=== PATIENT | female | born 1945 | race Caucasian/White ===

== ENCOUNTER → 2017-02-10 | Outpatient (CLI) | payer OTHER ==
[~2017-02-10] MED LIST: LISI2.5T47 PO; METF-372 PO
[2017-02-10 09:42] LABS: Basophils # (auto) 0 uL; Basophils % (auto) 0.4 % (0.0-2.0); CONDITION Y; Eosinophils # (auto) 0 uL; Eosinophils % (auto) 0.4 % (0.0-7.0); Hematocrit 37.8 % (36.0-46.0); Hemoglobin 12.8 g/dL (12.2-16.2); Lymphocytes # (auto) 2.6 uL; Lymphocytes % (auto) 26.1 % (10.0-50.0); Mean Corpuscular Hemoglobin 29.6 pg (28.0-32.0); Mean Corpuscular Hgb Conc. 33.8 g/dL (32.0-36.0); Mean Corpuscular Volume 87.4 fL (80.0-100.0); Mean Platelet Volume 7.3 fL (7.4-10.4); Monocytes # (auto) 0.8 uL; Neutrophils # (auto) 6.5 uL; Neutrophils % (auto) 65.1 % (37.0-80.0); Platelet Count (auto) 337 10^3/uL (140-450); Red Cell Distribution Width 14.9 % (11.6-16.0); White Blood Cell 9.9 10^3/uL (4.4-10.8)
[2017-02-10 09:52] LABS: Urine Bilirubin Negative (Negative); Urine Blood Negative /uL (Negative); Urine Color Yellow (Yellow); Urine Glucose Normal (Normal); Urine Ketone TRACE (Negative); Urine Nitrite Negative (Negative); Urine RBC 1 /hpf (0 - 4); Urine Squamous Epithelial Cell FEW /hpf (<5); Urine pH 6.5 (5.0-8.0)
[2017-02-10 10:20] LABS: Albumin 3.2 g/dL (3.4-5.0); BUN/Creatinine Ratio 20.5; Bilirubin, Total 0.9 mg/dL (0.2-1.0); Calcium 9.5 mg/dL (8.5-10.1); Potassium 4.6 mmol/L (3.5-5.1); Total Protein 7.4 g/dL (6.4-8.2)
== END | disposition home or self-care (01) ==
LOC: LAB 09:01
PROVIDERS: ATTEND Nurse Practitioner
DX: E11.65 Type 2 diabetes mellitus with hyperglycemia (principal)
CPT/HCPCS: 36415; 80053; 80061; 81001; 82043; 82306; 82607; 83036; 84443; 85025

== ENCOUNTER 2017-02-24 13:19 | Inpatient (IN) | payer OTHER ==
[~2017-02-24] VITALS: Ht 170.2 cm; Wt 71.9 kg
[2017-02-24] MEDS ORDERED: SODIUM CHLORIDE 0.9% 500 ML IV ONE (13:39)
[2017-02-24 13:59] LABS: Basophils # (auto) 0 uL; Basophils % (auto) 0.2 % (0.0-2.0); CONDITION Y; Eosinophils # (auto) 0 uL; Eosinophils % (auto) 0.4 % (0.0-7.0); Hematocrit 34.6 % (36.0-46.0); Hemoglobin 11.7 g/dL (12.2-16.2); Lymphocytes # (auto) 1.8 uL; Lymphocytes % (auto) 20.9 % (10.0-50.0); Mean Corpuscular Hemoglobin 29.9 pg (28.0-32.0); Mean Corpuscular Hgb Conc. 33.8 g/dL (32.0-36.0); Mean Corpuscular Volume 88.4 fL (80.0-100.0); Mean Platelet Volume 7.1 fL (7.4-10.4); Monocytes # (auto) 0.6 uL; Monocytes % (auto) 6.6 % (0.0-12.0); Neutrophils # (auto) 6.4 uL; Neutrophils % (auto) 71.9 % (37.0-80.0); Platelet Count (auto) 274 10^3/uL (140-450); Red Cell Distribution Width 14.6 % (11.6-16.0); White Blood Cell 8.8 10^3/uL (4.4-10.8)
[2017-02-24 14:08] LABS: Albumin 2.9 g/dL (3.4-5.0); Anion Gap 16 (5-15); Aspartate Aminotransferase 12 U/L (15-37); BUN/Creatinine Ratio 22.5; Blood Urea Nitrogen 25 mg/dL (7-18); Calcium 8.2 mg/dL (8.5-10.1); Carbon Dioxide 19 mmol/L (21-32); Chloride 86 mmol/L (98-107); GFR African American 63 mL/min; GFR Non-African American 52 mL/min; Glucose 99 mg/dL (74-106); Potassium 4.1 mmol/L (3.5-5.1); Sodium 121 mmol/L (136-145)
[2017-02-24 14:23] LABS: Alkaline Phosphatase 121 U/L (45-117); Bilirubin, Total 0.6 mg/dL (0.2-1.0)
[2017-02-24 15:06] LABS: Magnesium 1.7 mg/dL (1.6-2.6)
[2017-02-24] MEDS: SODIUM CHLORIDE 0.9% 1,000 ML IV SCH (17:13)
[2017-02-24] MEDS ORDERED: THIAMINE HCL 100 MG/ML 2ML VIAL IV ONE (17:15)
[2017-02-24] MEDS ORDERED: TEMAZEPAM 15 MG CAP PO PRN (17:15)
[2017-02-24] MEDS ORDERED: LORazepam 0.5 MG TAB PO PRN (17:15)
[2017-02-24] MEDS ORDERED: NITROGLYCERIN 0.4 MG SL TAB SL PRN (17:15)
[2017-02-24] MEDS ORDERED: chlordiazePOXIDE HCL 25 MG CAP PO PRN (17:15)
[2017-02-24] MEDS ORDERED: HYDROcodone-ACET 5/325MG TAB PO PRN (17:15)
[2017-02-24] MEDS ORDERED: DEXTROSE (50%) 50ML SYRG IV PRN (17:15)
[2017-02-24] MEDS ORDERED: MORPHINE SULF INJ 2 MG/ML SYRINGE 1ML IV PRN (17:15)
[2017-02-24] MEDS ORDERED: MORPHINE SULFATE 4 MG/ML SYRG IV PRN (17:15)
[2017-02-24] MEDS ORDERED: PROMETHAZINE HCL 25 MG/ML 1ML IV PRN (17:15)
[2017-02-24] MEDS ORDERED: AMIODARONE HCL 150 MG in D5W 5% 100 ML IV ONE (17:45)
[2017-02-24] MEDS ORDERED: AMIODARONE HCL 900 MG in DEXTROSE 500 ML IV SCH (18:00)
[2017-02-24 18:05] LABS: Urine Bilirubin Negative (Negative); Urine Blood 1+ /uL (Negative); Urine Color Yellow (Yellow); Urine Glucose Normal (Normal); Urine Ketone 1+ (Negative); Urine Nitrite Negative (Negative); Urine RBC 5 /hpf (0 - 4); Urine Squamous Epithelial Cell FEW /hpf (<5); Urine Urobilinogen Normal (Negative); Urine pH 5.5 (5.0-8.0)
[2017-02-24 19:35] LABS: Temperature: 23.5 C (20.0-25.0)
[2017-02-24] MEDS: InsuLIN REG 1unit/0.01ml Soln (100units/ml) SC SCH (22:00)
[2017-02-24] MEDS: ACCU-CHEK COMFORT CURVE STRIP VI SCH (22:06)
[2017-02-24 22:50] VITALS: BP 146/58
[2017-02-25] MEDS ORDERED: AMIODARONE HCL 900 MG in DEXTROSE 500 ML IV SCH ×2
[2017-02-25] MEDS: SODIUM CHLORIDE 0.9% 1,000 ML IV SCH ×3 (03:02→23:02)
[2017-02-25 05:09] VITALS: BP 137/86
[2017-02-25 06:51] LABS: Albumin 2.8 g/dL (3.4-5.0); BUN/Creatinine Ratio 22.8; Bilirubin, Total 0.6 mg/dL (0.2-1.0); Calcium 9.1 mg/dL (8.5-10.1); Potassium 4.7 mmol/L (3.5-5.1); Total Protein 6.8 g/dL (6.4-8.2)
[2017-02-25] MEDS: InsuLIN REG 1unit/0.01ml Soln (100units/ml) SC SCH ×4 (07:00→21:37)
[2017-02-25] MEDS: ACCU-CHEK COMFORT CURVE STRIP VI SCH ×4 (07:07→21:38)
[2017-02-25 08:00] VITALS: BP 111/77
[2017-02-25 09:00] VITALS: BP 111/77
[2017-02-25] MEDS: ASPirin 81 mg TAB PO SCH (09:20)
[2017-02-25] MEDS: THIAMINE HCL 100 MG/ML 2ML VIAL IV SCH (09:20)
[2017-02-25] MEDS: FOLIC ACID 1 MG in D5W 5% 50 ML IV SCH (09:20)
[2017-02-25 13:00] VITALS: BP 181/73
[2017-02-25] MEDS ORDERED: metFORMIN HYDROCHLORIDE 500 MG TAB PO ONE (13:30)
[2017-02-25] MEDS ORDERED: LISINOPRIL 5 MG TAB PO ONE (13:30)
[2017-02-25 17:00] VITALS: BP 103/70
[2017-02-26 02:17] VITALS: BP 111/63
[2017-02-26 05:00] VITALS: BP 132/63
[2017-02-26 06:49] LABS: Potassium 4.3 mmol/L (3.5-5.1)
[2017-02-26 06:52] LABS: BUN/Creatinine Ratio 22.4; Calcium 8.8 mg/dL (8.5-10.1)
[2017-02-26] MEDS: InsuLIN REG 1unit/0.01ml Soln (100units/ml) SC SCH ×4 (07:00→22:02)
[2017-02-26] MEDS: ACCU-CHEK COMFORT CURVE STRIP VI SCH ×4 (07:25→22:01)
[2017-02-26 09:00] VITALS: BP 149/77
[2017-02-26] MEDS: ASPirin 81 mg TAB PO SCH (10:24)
[2017-02-26] MEDS: THIAMINE HCL 100 MG/ML 2ML VIAL IV SCH (10:24)
[2017-02-26] MEDS: SODIUM CHLORIDE 0.9% 1,000 ML IV SCH ×2 (10:24→19:02)
[2017-02-26] MEDS: LISINOPRIL 5 MG TAB PO SCH (10:25)
[2017-02-26] MEDS: metFORMIN HYDROCHLORIDE 500 MG TAB PO SCH (10:26)
[2017-02-26] MEDS: FOLIC ACID 1 MG in D5W 5% 50 ML IV SCH (10:28)
[2017-02-26] MEDS ORDERED: traMADol HCL 50 MG TAB PO PRN (11:15)
[2017-02-26 13:00] VITALS: BP 146/74
[2017-02-26 17:00] VITALS: BP 153/67
[2017-02-26] MEDS: ACETAMINOPHEN 500 MG TAB PO PRN (22:03)
[2017-02-27 05:00] VITALS: BP 154/72
[2017-02-27] MEDS: SODIUM CHLORIDE 0.9% 1,000 ML IV SCH ×2 (05:32→15:02)
[2017-02-27] MEDS: ACCU-CHEK COMFORT CURVE STRIP VI SCH ×4 (06:41→22:00)
[2017-02-27] MEDS: InsuLIN REG 1unit/0.01ml Soln (100units/ml) SC SCH ×4 (06:41→22:00)
[2017-02-27 09:00] VITALS: BP 156/74
[2017-02-27] MEDS: THIAMINE HCL 100 MG/ML 2ML VIAL IV SCH (10:04)
[2017-02-27] MEDS: FOLIC ACID 1 MG in D5W 5% 50 ML IV SCH (10:04)
[2017-02-27] MEDS: LISINOPRIL 5 MG TAB PO SCH (10:05)
[2017-02-27] MEDS: ASPirin 81 mg TAB PO SCH (10:05)
[2017-02-27] MEDS: metFORMIN HYDROCHLORIDE 500 MG TAB PO SCH (10:06)
[2017-02-27 13:00] VITALS: BP 152/76
[2017-02-27 17:00] VITALS: BP 144/73
[2017-02-27] MEDS: ACETAMINOPHEN 500 MG TAB PO PRN (17:15)
[2017-02-27 22:39] VITALS: BP 160/80
[2017-02-28] MEDS: SODIUM CHLORIDE 0.9% 1,000 ML IV SCH ×2 (03:51→14:08)
[2017-02-28] MEDS: ACETAMINOPHEN 500 MG TAB PO PRN (04:21)
[2017-02-28 05:40] VITALS: BP 167/81
[2017-02-28] MEDS: ACCU-CHEK COMFORT CURVE STRIP VI SCH ×2 (06:58→14:08)
[2017-02-28] MEDS: InsuLIN REG 1unit/0.01ml Soln (100units/ml) SC SCH ×2 (06:58→11:30)
[2017-02-28 09:17] VITALS: BP 169/101
[2017-02-28] MEDS: metFORMIN HYDROCHLORIDE 500 MG TAB PO SCH (10:00)
[2017-02-28] MEDS: LISINOPRIL 5 MG TAB PO SCH (10:00)
[2017-02-28] MEDS: ASPirin 81 mg TAB PO SCH (10:00)
[2017-02-28] MEDS: THIAMINE HCL 100 MG/ML 2ML VIAL IV SCH (10:00)
[2017-02-28] MEDS: FOLIC ACID 1 MG in D5W 5% 50 ML IV SCH (10:01)
[2017-02-28] MEDS ORDERED: ASPI81CH43 PO (12:14)
[2017-02-28] MEDS ORDERED: LISI-275 PO (12:14)
[2017-02-28] MEDS ORDERED: FOLITAB22 PO (12:14)
[2017-02-28 13:00] VITALS: BP 177/89
[2017-03-01] MEDS ORDERED: LISINOPRIL 5 MG TAB PO SCH (10:00)
== END 2017-02-28 15:40 | disposition home or self-care (01) | DRG 556 ==
LOC: ER 13:19 → EDBD 13:19 → TELE 13:20 → TELE-WESTW 22:50
PROVIDERS: ADMIT Internal Medicine; ATTEND Internal Medicine
DX: M25.552 Pain in left hip (principal); E44.0 Moderate protein-calorie malnutrition; E87.1 Hypo-osmolality and hyponatremia; N39.0 Urinary tract infection, site not specified; R26.9 Unspecified abnormalities of gait and mobility; E11.9 Type 2 diabetes mellitus without complications; F17.210 Nicotine dependence, cigarettes, uncomplicated; G89.29 Other chronic pain; I10 Essential (primary) hypertension; I67.2 Cerebral atherosclerosis; E87.8 Other disorders of electrolyte and fluid balance, not elsewhere classified; M85.80 Other specified disorders of bone density and structure, unspecified site; R29.6 Repeated falls; E11.42 Type 2 diabetes mellitus with diabetic polyneuropathy; E53.8 Deficiency of other specified B group vitamins; F10.20 Alcohol dependence, uncomplicated; W19.XXXA Unspecified fall, initial encounter; Z83.3 Family history of diabetes mellitus; Z68.24 Body mass index [BMI] 24.0-24.9, adult; Z90.49 Acquired absence of other specified parts of digestive tract; Z90.710 Acquired absence of both cervix and uterus; M19.90 Unspecified osteoarthritis, unspecified site
CPT/HCPCS: 36415; 70450; 71010; 73700; 80048; 80053; 80061; 80307; 80320; 81001; 82550; 82607; 82746; 82962; 83036; 83735; 84443; 84484; 85025; 85652; 93005; 93886; 94761; 96361; 96374; 97116; 97163; 97530; J1815; J7060

== ENCOUNTER → 2017-12-09 | Outpatient (CLI) | payer OTHER ==
[~2017-12-09] MED LIST changes: +ASPI81CH43 PO; +FOLITAB22 PO; +LISI-275 PO
[2017-12-09 08:48] LABS: Basophils # (auto) 0 uL; Basophils % (auto) 0.5 % (0.0-2.0); Eosinophils # (auto) 0.1 uL; Eosinophils % (auto) 1.3 % (0.0-7.0); Hematocrit 37.3 % (36.0-46.0); Lymphocytes # (auto) 2.3 uL; Lymphocytes % (auto) 32.1 % (10.0-50.0); Mean Corpuscular Hemoglobin 29.8 pg (28.0-32.0); Mean Corpuscular Hgb Conc. 32.1 g/dL (32.0-36.0); Mean Corpuscular Volume 92.9 fL (80.0-100.0); Monocytes # (auto) 0.5 uL; Monocytes % (auto) 7.2 % (0.0-12.0); Neutrophils # (auto) 4.2 uL; Neutrophils % (auto) 58.9 % (37.0-80.0); Nucleated Red Blood Cells % 0.1 %; Platelet Count (auto) 282 10^3/uL (140-450); Red Blood Cells 4.02 10^6/uL (4.0-5.20); Red Cell Distribution Width 15.4 % (11.8-14.3); White Blood Cell 7.1 10^3/uL (4.4-10.8)
[2017-12-09 09:07] LABS: Urine Bacteria NONE SEEN /hpf (None Seen); Urine Blood 1+ /uL (Negative); Urine Mucus FEW (None Seen); Urine Specific Gravity 1.014 (1.001-1.035); Urine WBC 118 /hpf (0 - 5)
[2017-12-09 09:15] LABS: Albumin 3.7 g/dL (3.4-5.0); BUN/Creatinine Ratio 26.1; Bilirubin, Total 0.6 mg/dL (0.2-1.0); Calcium 9.4 mg/dL (8.5-10.1); Total Protein 8.1 g/dL (6.4-8.2)
== END | disposition home or self-care (01) ==
LOC: LAB 07:21
PROVIDERS: ATTEND Nurse Practitioner
DX: E78.5 Hyperlipidemia, unspecified (principal); E11.42 Type 2 diabetes mellitus with diabetic polyneuropathy; E11.22 Type 2 diabetes mellitus with diabetic chronic kidney disease; I12.9 Hypertensive chronic kidney disease with stage 1 through stage 4 chronic kidney disease, or unspecified chronic kidney disease; N18.3 Chronic kidney disease, stage 3 (moderate)
CPT/HCPCS: 36415; 80053; 80061; 81001; 82043; 83036; 84443; 85025

== ENCOUNTER → 2018-01-11 | Outpatient (CLI) | payer OTHER ==
[2018-01-11 13:30] LABS: Hepatitis B Surface Antibody Negative
[2018-01-11 14:01] LABS: Hepatitis A Total Antibody Negative
[2018-01-11 17:54] LABS: Hepatitis B Surface Antigen Negative (Negative); Hepatitis C Antibody Negative (Negative)
[2018-01-11 17:55] LABS: Hepatitis B Core Total AB Negative
== END | disposition home or self-care (01) ==
LOC: LAB 07:35
PROVIDERS: ATTEND Nurse Practitioner
DX: E78.5 Hyperlipidemia, unspecified (principal); I12.9 Hypertensive chronic kidney disease with stage 1 through stage 4 chronic kidney disease, or unspecified chronic kidney disease; E11.22 Type 2 diabetes mellitus with diabetic chronic kidney disease; N18.3 Chronic kidney disease, stage 3 (moderate)
CPT/HCPCS: 36415; 86704; 86706; 86708; 86803; 87340

== ENCOUNTER 2018-03-05 11:52 | Emergency (ER) | payer OTHER, MEDICAID ==
[~2018-03-05] VITALS: Ht 152.4 cm; Wt 68.0 kg
[2018-03-05 13:20] LABS: Basophils # (auto) 0.1 uL; Basophils % (auto) 0.9 % (0.0-2.0); Eosinophils # (auto) 0 uL; Eosinophils % (auto) 0.7 % (0.0-7.0); Hematocrit 38.5 % (36.0-46.0); Hemoglobin 12.8 g/dL (12.2-16.2); Lymphocytes # (auto) 1.2 uL; Lymphocytes % (auto) 17.5 % (10.0-50.0); Mean Corpuscular Hemoglobin 30.3 pg (28.0-32.0); Mean Corpuscular Hgb Conc. 33.1 g/dL (32.0-36.0); Mean Corpuscular Volume 91.4 fL (80.0-100.0); Monocytes # (auto) 0.7 uL; Monocytes % (auto) 9.6 % (0.0-12.0); Neutrophils # (auto) 4.9 uL; Neutrophils % (auto) 71.3 % (37.0-80.0); Nucleated Red Blood Cells % 0.1 %; Platelet Count (auto) 219 10^3/uL (140-450); Red Blood Cells 4.22 10^6/uL (4.0-5.20); Red Cell Distribution Width 15.3 % (11.8-14.3); White Blood Cell 6.9 10^3/uL (4.4-10.8)
[2018-03-05 13:38] LABS: Alanine Aminotransferase 15 U/L (13-56); Albumin 2.8 g/dL (3.4-5.0); Anion Gap 13 (5-15); Aspartate Aminotransferase 12 U/L (15-37); BUN/Creatinine Ratio 18.5; Blood Urea Nitrogen 29 mg/dL (7-18); Carbon Dioxide 20 mmol/L (21-32); Chloride 99 mmol/L (98-107); GFR African American 42 mL/min; GFR Non-African American 35 mL/min; Glucose 155 mg/dL (74-106); Potassium 4.3 mmol/L (3.5-5.1); Sodium 132 mmol/L (136-145)
[2018-03-05 13:43] LABS: Alkaline Phosphatase 70 U/L (45-117); Bilirubin, Total 0.4 mg/dL (0.2-1.0); Total Protein 6.6 g/dL (6.4-8.2)
[2018-03-05 15:33] LABS: Urine Amorphous Crystal FEW /hpf (None Seen); Urine Bacteria FEW /hpf (None Seen); Urine Blood Negative /uL (Negative); Urine Hyaline Cast MOD /lpf (0 - 2); Urine Mucus FEW (None Seen); Urine Specific Gravity 1.013 (1.001-1.035); Urine WBC 103 /hpf (0 - 5)
[2018-03-05 15:51] VITALS: BP 142/85
== END 2018-03-05 16:01 | disposition home or self-care (01) ==
LOC: ER 11:52
DX: G62.9 Polyneuropathy, unspecified (principal); N39.0 Urinary tract infection, site not specified; E11.9 Type 2 diabetes mellitus without complications; I10 Essential (primary) hypertension; F17.210 Nicotine dependence, cigarettes, uncomplicated; Z90.49 Acquired absence of other specified parts of digestive tract; Z90.710 Acquired absence of both cervix and uterus
CPT/HCPCS: 36415; 70450; 71045; 80053; 81001; 82962; 84484; 85025; 93005

== ENCOUNTER 2018-03-23 13:08 | Emergency (ER) | payer OTHER, MEDICAID ==
[~2018-03-23] VITALS: Ht 162.6 cm; Wt 62.1 kg
[2018-03-23] MEDS ORDERED: SODIUM CHLORIDE 0.9% 1,000 ML IV ONE (13:23)
[2018-03-23 14:17] LABS: Basophils # (auto) 0.1 uL; Basophils % (auto) 1.1 % (0.0-2.0); Eosinophils # (auto) 0 uL; Eosinophils % (auto) 0.5 % (0.0-7.0); Hematocrit 37.4 % (36.0-46.0); Hemoglobin 12.1 g/dL (12.2-16.2); Lymphocytes # (auto) 1.4 uL; Lymphocytes % (auto) 21.3 % (10.0-50.0); Mean Corpuscular Hemoglobin 29.1 pg (28.0-32.0); Mean Corpuscular Hgb Conc. 32.3 g/dL (32.0-36.0); Mean Corpuscular Volume 90.3 fL (80.0-100.0); Monocytes # (auto) 0.6 uL; Monocytes % (auto) 9.7 % (0.0-12.0); Neutrophils # (auto) 4.4 uL; Neutrophils % (auto) 67.4 % (37.0-80.0); Nucleated Red Blood Cells % 0.2 %; Platelet Count (auto) 235 10^3/uL (140-450); Red Blood Cells 4.14 10^6/uL (4.0-5.20); Red Cell Distribution Width 15.3 % (11.8-14.3); White Blood Cell 6.6 10^3/uL (4.4-10.8)
[2018-03-23 14:36] LABS: Alanine Aminotransferase 14 U/L (13-56); Albumin 2.6 g/dL (3.4-5.0); Anion Gap 16 (5-15); Aspartate Aminotransferase 15 U/L (15-37); BUN/Creatinine Ratio 15.6; Blood Urea Nitrogen 27 mg/dL (7-18); Calcium 7.8 mg/dL (8.5-10.1); Carbon Dioxide 19 mmol/L (21-32); Chloride 99 mmol/L (98-107); GFR African American 37 mL/min; GFR Non-African American 31 mL/min; Glucose 157 mg/dL (74-106); Potassium 4.1 mmol/L (3.5-5.1); Sodium 134 mmol/L (136-145)
[2018-03-23 14:41] LABS: Alkaline Phosphatase 80 U/L (45-117); Bilirubin, Total 0.4 mg/dL (0.2-1.0); Total Protein 6.5 g/dL (6.4-8.2)
[2018-03-23 18:07] VITALS: BP 150/87
== END 2018-03-23 18:09 | disposition home or self-care (01) ==
LOC: ER 13:08 → EDUNIT# 13:08 → EDBD 13:08 → ER 18:09
DX: R42 Dizziness and giddiness (principal); E86.0 Dehydration; F17.210 Nicotine dependence, cigarettes, uncomplicated; E44.0 Moderate protein-calorie malnutrition; E11.9 Type 2 diabetes mellitus without complications; I10 Essential (primary) hypertension; Z68.23 Body mass index [BMI] 23.0-23.9, adult; Z90.49 Acquired absence of other specified parts of digestive tract; Z90.710 Acquired absence of both cervix and uterus
CPT/HCPCS: 36415; 70450; 71045; 80053; 82962; 83880; 84484; 85025; 93005; 96360; 99285; J7030

== ENCOUNTER → 2018-04-25 | Outpatient (CLI) | payer OTHER, MEDICAID ==
[2018-04-25 08:12] LABS: Basophils # (auto) 0 uL; Basophils % (auto) 0.5 % (0.0-2.0); Eosinophils # (auto) 0.1 uL; Eosinophils % (auto) 1.6 % (0.0-7.0); Hematocrit 39.8 % (36.0-46.0); Lymphocytes # (auto) 2.1 uL; Mean Corpuscular Hemoglobin 30.3 pg (28.0-32.0); Mean Corpuscular Hgb Conc. 32.6 g/dL (32.0-36.0); Mean Corpuscular Volume 92.7 fL (80.0-100.0); Monocytes # (auto) 0.4 uL; Monocytes % (auto) 5.7 % (0.0-12.0); Neutrophils # (auto) 4.1 uL; Neutrophils % (auto) 61.2 % (37.0-80.0); Nucleated Red Blood Cells % 0.1 %; Platelet Count (auto) 253 10^3/uL (140-450); Red Blood Cells 4.29 10^6/uL (4.0-5.20); Red Cell Distribution Width 16.3 % (11.8-14.3); White Blood Cell 6.8 10^3/uL (4.4-10.8)
[2018-04-25 09:06] LABS: Albumin 3.2 g/dL (3.4-5.0); BUN/Creatinine Ratio 18.2; Bilirubin, Total 0.7 mg/dL (0.2-1.0); Potassium 3.9 mmol/L (3.5-5.1); Total Protein 7.5 g/dL (6.4-8.2)
== END | disposition home or self-care (01) ==
LOC: LAB 07:18
PROVIDERS: ATTEND Nurse Practitioner
DX: E78.5 Hyperlipidemia, unspecified (principal); E11.59 Type 2 diabetes mellitus with other circulatory complications; I10 Essential (primary) hypertension
CPT/HCPCS: 36415; 80053; 80061; 82306; 83036; 84443; 85025

== ENCOUNTER → 2018-05-02 | Outpatient (CLI) | payer OTHER, MEDICAID ==
[2018-05-02 09:53] LABS: Urine Amorphous Crystal FEW /hpf (None Seen); Urine Bacteria NONE SEEN /hpf (None Seen); Urine Blood Negative /uL (Negative); Urine Specific Gravity 1.008 (1.001-1.035); Urine WBC 2 /hpf (0 - 5)
== END | disposition home or self-care (01) ==
LOC: LAB 09:09
PROVIDERS: ATTEND Nurse Practitioner
DX: E11.59 Type 2 diabetes mellitus with other circulatory complications (principal); E78.5 Hyperlipidemia, unspecified; F17.200 Nicotine dependence, unspecified, uncomplicated
CPT/HCPCS: 81001; 82043

== ENCOUNTER 2018-11-08 13:15 | Inpatient (IN) | payer OTHER, MEDICAID | END 2018-11-10 15:20 | disposition home or self-care (01) | LOC: EAST 11-10 00:09 → ER 13:15 → OVERFLOW 19:41 → EAST 21:29 | DX: A41.9 Sepsis, unspecified organism (principal); E44.0 Moderate protein-calorie malnutrition; E87.1 Hypo-osmolality and hyponatremia; N39.0 Urinary tract infection, site not specified ==

== ENCOUNTER 2018-11-24 14:53 | Inpatient (IN) | payer OTHER, MEDICAID ==
[~2018-11-24] VITALS: Ht 165.1 cm; Wt 54.3 kg
[~2018-11-24 14:53] MED LIST changes: +AML5T PO; -ASPI81CH43 PO; +ATOR20TA PO; -FOLITAB22 PO; +GABA300C10 PO; +HCTZ25T PO; -LISI-275 PO; +LISI-646 PO; -LISI2.5T47 PO; +LOSA100T33 PO; +METF-370 PO; -METF-372 PO; +OXYB5TAB61 PO
--- NOTE | 2018-11-24 16:00 | NUR ---
Direct Admit Note from [facility] RICK GARZA admitted to Telemetry/MS unit as a direct admit per MD order from [place]. Patient oriented to ENDER PASTOR, primary RN, unit, room, bed, and unit policies regarding patient care and visiting hours. Patient now on continuous telemetry monitoring, tele box # 1 and telemetry reading on arrival to unit is SR 89 with PVCs. Patient weighed by bed scale and encouraged to call if they need something. All questions and concerns addressed, patient verbalized understanding. MD notified of patients arrival and admit orders received.
--- NOTE | 2018-11-24 16:38 | NUR ---
Swallow eval Per RN at [place] patient passed swallow eval. Cardiac diet ordered per Dr. Alan.
--- NOTE | 2018-11-24 16:39 | NUR ---
Called Dr. Alan for direct admit orders. Per Dr. Alan hospitalist to assume care of patient.
[2018-11-24 17:00] VITALS: BP 129/63
[2018-11-24] MEDS ORDERED: HYDROcodone-ACET 5/325MG TAB PO PRN (17:15)
[2018-11-24] MEDS ORDERED: diphenhdrAMINE HCL 25 MG CAP PO PRN (17:15)
[2018-11-24] MEDS ORDERED: DOCUSATE SOD 100 MG CAP PO PRN (17:15)
[2018-11-24] MEDS ORDERED: ONDANSETRON HCL 4 MG/2 ML VIAL IV PRN (17:15)
[2018-11-24] MEDS ORDERED: hydrALAZINE HCL 20 MG/ML VL IV PRN (17:15)
[2018-11-24] MEDS ORDERED: ACETAMINOPHEN 500 MG TAB PO PRN (17:15)
[2018-11-24 17:21] VITALS: BP 129/63
--- NOTE | 2018-11-24 19:30 | NUR ---
Opening shift note Patient in bed alert and oriented x 3, with periods of forgetfulness. Patient able to make needs known. Patient's respiration even and unlabored, denies pain and discomfort at this time. Plan of care discussed, patient verbalized understanding. All needs attended, will continue to monitor.
--- NOTE | 2018-11-24 20:12 | NUR ---
SWALLOW EVALUATED. PATIENT HAS OWN TEETH. PATIENT ABLE TO TOLERATE MECHANICAL SOFT DIET TEXTURE WITH THIN LIQUIDS WITH NO OVERT SIGNS OR SYMPTOMS OF ASPIRATION.
[2018-11-24] MEDS: ATORVASTATIN 20 MG TAB PO SCH (22:10)
[2018-11-24 22:26] VITALS: BP 117/64
[2018-11-24] MEDS: ALPRAZolam 0.25 MG TAB PO PRN (23:10)
--- NOTE | 2018-11-24 23:11 | NUR ---
Patient restless, constantly trying to get off bed. Patient with unstable gait and balance. Assessed patient's BP at 171/69. PRN Apresoline and antianxiety med given. Will reassess and continue to monitor.
--- NOTE | 2018-11-24 23:41 | NUR ---
Reassessed BP at 126/75. Patient calm and relaxed. Will continue to monitor.
--- NOTE | 2018-11-25 02:38 | NUR ---
Patient trying to get up from bed. Per patient "I do not know what I am trying to do" Patient confused. Reoriented patient, encourage to get some sleep. Patient denies pain and discomfort at this time. Will continue to monitor.
--- NOTE | 2018-11-25 04:00 | NUR ---
NEURO CHECK PATIENT ALERT AND ORIENTED X 2, ORIENTED TO NAME, TIME AND PLACE. PATIENT WITH EPISODES OF CONFUSION. PT ABLE TO MAKE NEEDS KNOWN. PUPILS PERRLA, PT WITH STRONG, EQUAL BILATERAL HAND LICENSED AND CERTIFIED MIDWIFE. PT ABLE TO TRANSFER FROM BED TO BEDSIDE COMMODE WITH STANDBY ASSIST.
[2018-11-25 04:30] VITALS: BP 135/74
[2018-11-25 05:31] VITALS: BP 148/73
[2018-11-25 06:38] LABS: Basophils # (auto) 0.1 uL; Basophils % (auto) 0.7 % (0.0-2.0); Eosinophils # (auto) 0.1 uL; Eosinophils % (auto) 0.8 % (0.0-7.0); Hematocrit 40.5 % (36.0-46.0); Hemoglobin 13.3 g/dL (12.2-16.2); Lymphocytes # (auto) 1.5 uL; Lymphocytes % (auto) 19.4 % (10.0-50.0); Mean Corpuscular Hemoglobin 29.8 pg (28.0-32.0); Mean Corpuscular Hgb Conc. 32.8 g/dL (32.0-36.0); Mean Corpuscular Volume 91.1 fL (80.0-100.0); Monocytes # (auto) 0.6 uL; Monocytes % (auto) 7.3 % (0.0-12.0); Neutrophils # (auto) 5.6 uL; Neutrophils % (auto) 71.8 % (37.0-80.0); Nucleated Red Blood Cells % 0.1 %; Platelet Count (auto) 274 10^3/uL (140-450); Red Blood Cells 4.44 10^6/uL (4.0-5.20); Red Cell Distribution Width 15.2 % (11.8-14.3); White Blood Cell 7.8 10^3/uL (4.4-10.8)
--- NOTE | 2018-11-25 06:40 | NUR ---
PATIENT TRANSFERRED FROM ROOM 276B TO ROOM 279B. PATIENT WITH SITTER AT BEDSIDE. WILL CONTINUE TO MONITOR.
[2018-11-25 06:54] LABS: Albumin 3.2 g/dL (3.4-5.0); Calcium 9.3 mg/dL (8.5-10.1); Potassium 4.8 mmol/L (3.5-5.1)
[2018-11-25 06:59] LABS: BUN/Creatinine Ratio 20.5; Bilirubin, Total 0.7 mg/dL (0.2-1.0); Total Protein 7.5 g/dL (6.4-8.2)
--- NOTE | 2018-11-25 07:30 | NUR ---
Opening Shift Note Patient is resting in bed. Bed is locked and lowered with side rails up x2. Patient denies pain and shows no signs or symptoms of shortness of breath. Instructed patient on the plan of care and to call for assistance as needed. Call light within reach. Sitter at bedside. Will continue to round hourly and as needed.
--- NOTE | 2018-11-25 08:00 | NUR ---
Neuro Check Patient is having some episodes of confusion, but is awake and alert x2. Pupils are equal, round, and reactive. Bilateral hand damage assessor are strong. Bilateral arms are strong, fingers wiggle. Arms are able to push/pull. Bilateral legs are strong, able to wiggle toes. Legs are able to push/pull. Patient is able to pivot to bedside commode.
[2018-11-25 09:00] VITALS: BP 127/71
--- NOTE | 2018-11-25 10:00 | NUR ---
Neuro Check Patient is still having some episodes of confusion, but is awake and alert x2. Pupils are equal, round, and reactive. Bilateral hand esthetician makeup artist are strong. Bilateral arms are strong, fingers wiggle. Arms are able to push/pull. Bilateral legs are strong, able to wiggle toes. Legs are able to push/pull. Patient is able to pivot to bedside commode.
--- NOTE | 2018-11-25 10:30 | NUR ---
at bedside Dr. Whitman at bedside discussing plan of care with patient and this RN. Dr. Whitman is aware of MRI findings.
--- NOTE | 2018-11-25 12:00 | NUR ---
Neuro Check Patient is having some episodes of confusion, but is awake and alert x2. Pupils are equal, round, and reactive. Bilateral hand manager route are strong. Bilateral arms are strong, fingers wiggle. Arms are able to push/pull. Bilateral legs are strong, able to wiggle toes. Legs are able to push/pull. Patient is able to pivot to bedside commode.
--- NOTE | 2018-11-25 12:55 | NUR ---
at bedside Dr. Trinidad at bedside discussing plan of care with patient and this RN.
--- NOTE | 2018-11-25 12:56 | NUR ---
Call to Sister Call to sister to verify patient's medical history. No answer. Left a message. Awaiting call back.
[2018-11-25 13:00] VITALS: BP 100/52
--- NOTE | 2018-11-25 13:16 | NUR ---
Re: D/C Neuro Check Per Dr. Trinidad, Neuro checks can be discontinued.
[2018-11-25] MEDS: ALPRAZolam 0.25 MG TAB PO PRN (13:55)
--- NOTE | 2018-11-25 14:06 | NUR ---
Re: Refusing Murrieta Removal Patient is refusing to have murrieta catheter removed. Patient states that she will, "remove catheter herself." Educated patient on the importance of removing murrieta catheter properly. Educated patient that continuously tugging on catheter can cause pain and damage. Patient insists on leaving catheter in. Sitter at bedside.
--- NOTE | 2018-11-25 15:10 | NUR ---
Re: Patient ripped out IV Patient has ripped out IV at this time. Patient is bleeding and refusing to let me or the sitter touch her at this time. Gave patient a new gown due to blood on it. Patient took gown but refuses to allow us to assist her. Educated patient on the importance of properly discontinuing IV and murrieta catheter.
--- NOTE | 2018-11-25 16:30 | NUR ---
Re: Call to Dr. Whitman Call to Dr. Whitman at this time regarding patient's increasing agitation. Have had to call security on patient several times. New orders given.
[2018-11-25] MEDS: HALOPERIDOL LACTATE 5 MG/ML INJ VIAL IM PRN ×2 (16:37→22:38)
[2018-11-25 17:00] VITALS: BP 147/64
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
--- NOTE | 2018-11-25 19:28 | NUR ---
Re: Closing Note Patient is sitting in bed. Patient does not appear to be in any pain and shows no signs or symptoms of distress or shortness of breath. Report given. Sitter at bedside.
--- NOTE | 2018-11-25 20:48 | NUR ---
IV removal. Removed IV to left forearm area. Catheter intact upon removal. IV site covered in sterile gauze and wrapped with coban. Patient tolerated but is still agitated.
[2018-11-25 22:00] VITALS: BP 146/86
[2018-11-25] MEDS: ATORVASTATIN 20 MG TAB PO SCH (22:38)
[2018-11-25] MEDS: APIXABAN 5 MG TAB PO SCH (22:38)
--- NOTE | 2018-11-25 23:40 | NUR ---
IV Inserted. 24 gauge IV inserted into right upper forearm after 2 attempts. IV secured. Patient tolerated well.
[2018-11-26 06:17] LABS: Basophils # (auto) 0.1 uL; Eosinophils # (auto) 0.1 uL; Eosinophils % (auto) 1.6 % (0.0-7.0); Hematocrit 40.7 % (36.0-46.0); Hemoglobin 13.1 g/dL (12.2-16.2); Lymphocytes # (auto) 2.4 uL; Lymphocytes % (auto) 36.9 % (10.0-50.0); Mean Corpuscular Hgb Conc. 32.1 g/dL (32.0-36.0); Mean Corpuscular Volume 90.1 fL (80.0-100.0); Monocytes # (auto) 0.7 uL; Monocytes % (auto) 10.7 % (0.0-12.0); Neutrophils # (auto) 3.2 uL; Neutrophils % (auto) 49.8 % (37.0-80.0); Nucleated Red Blood Cells % 0.1 %; Platelet Count (auto) 260 10^3/uL (140-450); Red Blood Cells 4.51 10^6/uL (4.0-5.20); Red Cell Distribution Width 14.9 % (11.8-14.3); White Blood Cell 6.4 10^3/uL (4.4-10.8)
[2018-11-26 06:37] LABS: Albumin 3.1 g/dL (3.4-5.0); Calcium 8.9 mg/dL (8.5-10.1); Potassium 3.9 mmol/L (3.5-5.1)
[2018-11-26 06:42] LABS: BUN/Creatinine Ratio 25.2; Bilirubin, Total 0.6 mg/dL (0.2-1.0); Total Protein 7.1 g/dL (6.4-8.2)
--- NOTE | 2018-11-26 07:50 | NUR ---
Opening Shift Note Assumed care of patient, awake and alert. No S/S of distress/SOB or pain. Instructed on POC and to call for assist PRN, will continue to monitor for changes Q1hr and PRN.
[2018-11-26 09:00] VITALS: BP 126/56
--- NOTE | 2018-11-26 09:40 | NUR ---
Dr. Whitman at bedside.
[2018-11-26] MEDS ORDERED: ASPirin 81 mg TAB PO SCH (10:00)
[2018-11-26] MEDS: APIXABAN 5 MG TAB PO SCH ×2 (10:09→22:20)
[2018-11-26] MEDS ORDERED: HALOPERIDOL LACTATE 5 MG/ML INJ VIAL IM PRN (11:45)
[2018-11-26 13:00] VITALS: BP 130/76
[2018-11-26 17:00] VITALS: BP 155/76
--- NOTE | 2018-11-26 19:14 | NUR ---
Closing note Patient resting in bed, no signs of distress noted.
--- NOTE | 2018-11-26 19:25 | NUR ---
Opening Shift Note Assumed care of patient, awake and alert X 3. Patient's mentation has improved since previous shift. Bed is in lowest position and locked. Call light within reach. Tele box number matches monitor and leads are in correct placement.Sitter at bedside. No S/S of distress/SOB or pain. Instructed on POC and to call for assist PRN, will continue to monitor for changes Q1hr and PRN.
[2018-11-26 22:00] VITALS: BP 137/72
[2018-11-26] MEDS: ATORVASTATIN 20 MG TAB PO SCH (22:20)
[2018-11-27 05:20] VITALS: BP 148/91
--- NOTE | 2018-11-27 07:40 | NUR ---
Opening Shift Note Assumed care of patient, awake and alert. No S/S of distress/SOB or pain. Sitter at bedside. Will continue to monitor for changes Q1hr and PRN.
--- NOTE | 2018-11-27 07:47 | NUR ---
Spoke to Dr. Trinidad. Dr. Trinidad states to D/C LUZMARIA as family confirmed a-fib. Dr. Trinidad further states echo is enough.
[2018-11-27 08:47] VITALS: BP 150/83
[2018-11-27] MEDS: APIXABAN 5 MG TAB PO SCH (09:42)
[2018-11-27 09:45] LABS: Folate (Folic Acid) 10.28 ng/mL (5.38-24)
--- NOTE | 2018-11-27 09:45 | NUR ---
Patient removed tele and was put back on.
--- NOTE | 2018-11-27 09:55 | NUR ---
Cristina catheter dc'd per patient request Cristina dc'd with clean technique following deflation of balloon. Patient tolerated well with no complaints of pain. Continue care.
--- NOTE | 2018-11-27 10:02 | NUR ---
Received call from Jackeline, patient's sister. Jackeline updated with the POC after providing the password.
--- NOTE | 2018-11-27 10:10 | NUR ---
Patient removed tele again. Patient seems to be forgetful. Tele was put on again and explained the patient the purpose of having tele monitor on. Patient verbalized understanding.
--- NOTE | 2018-11-27 11:00 | NUR ---
DR. BROWN AT BEDSIDE.
[2018-11-27 13:00] VITALS: BP 152/82
--- NOTE | 2018-11-27 13:31 | NUR ---
Paged social work administrator re: consult for home health services consult for medication management.
--- NOTE | 2018-11-27 14:09 | NUR ---
Spoke to Loretta, social media content manager. Loretta informed re: web content & social media manager consult for home health services for medication management and family would like to discuss about it, family at bedside. Loretta states she will talk to the family.
[2018-11-27] MEDS: ALPRAZolam 0.25 MG TAB PO PRN (14:23)
--- NOTE | 2018-11-27 14:37 | NUR ---
SS order faxed to [facility] await Loretta notification if family wants hh.
--- NOTE | 2018-11-27 15:05 | NUR ---
Spoke to Loretta. Loretta states that she sent the order over to [employer]. company re: FWW. Will update the patient.
--- NOTE | 2018-11-27 15:48 | NUR ---
Patient pulled out her own IV.
--- NOTE | 2018-11-27 16:10 | NUR ---
Per WALTER Burgosseo coordinator, Sujata at [facility] has accepted pt and care can start 24 to 48 hrs post d/c
--- NOTE | 2018-11-27 16:19 | NUR ---
Spoke to Loretta , asked her where will the FWW be delivered. Loretta states at bedside between 2-4pm. Informed Loretta that walker was not delivered yet until this time.
--- NOTE | 2018-11-27 16:30 | NUR ---
Spoke to Loretta, public health social worker and asked the contact number of [employer] company : [phone].
--- NOTE | 2018-11-27 16:33 | NUR ---
Called [facility] re: delivery of FWW. States they will give me a call back. Spoke to Merlene.
--- NOTE | 2018-11-27 17:05 | NUR ---
Spoke to Eugene from home care, states that FWW will be delivered at bedside not later than 6:30 pm. Jackeline, patient's sister updated.
--- NOTE | 2018-11-27 17:24 | NUR ---
assessment Patient is a 73 year old female who is alert and oriented. Patients cognitive abilities are intact. Prior to admission patient lived home alone and functioned independently. Patient informed me she is able to care for her own ADLs. Per patient she will return home to her prior living arrangements post discharge and family will transport her home. Patient informed me she has a cane for home use. Patient informed me she uses [facility] for her PCP. Patient informed me she feels safe returning home on discharge. I informed patient she has a right to speak to a school social worker regarding all care. I informed patient she has a right to participate in any and all discharge planning. Patient is aware of visiting hours on the hospital floor. I informed patient she has a right to privacy. Patient does not have a POA and advanced directive. I have offered patient information on POA and advanced directives and patient refused. I informed the patient the advantages and benefits of having an Advanced Directive. Patient verbalized understanding and agreed to discharge plan. I informed patient she has a ss consult for [employer] for med management and fww. MD order sent to [facility] and to . Per Meghan [facility] has accepted and will start service tomorrow 11/28/18. Per Trish Melchor[facility]Paige to deliver walker to bedside today between [id number]. Patient has been notified. Addendum: 11/27/18 at 1728 by Sana GUZMAN Amended: Links added.
--- NOTE | 2018-11-27 17:40 | NUR ---
Discharge instructions given as ordered. Encourage to follow up with PMD, welding systems and equipment repairer and neurologist as instructed. All questions and concerns addressed. Patient verbalized understanding. Medication reconciliation form completed and copy given to patient. Telemetry unit returned to [facility]. Patient taken to vehicle via wheelchair with all personal belongings, accompanied by staff and family member. No distress noted at time of departure.
--- NOTE | 2018-11-27 17:49 | NUR ---
homecare delivered the FWW at bedside but patient already left. homecare staff states they will deliver it to the patient's house. Jackeline, patient's sister informed.
== END 2018-11-27 17:40 | disposition home health service (06) | DRG 64 ==
LOC: TELE-WESTW 15:42
PROVIDERS: ADMIT Internal Medicine; ATTEND Family Medicine
DX: I63.9 Cerebral infarction, unspecified (principal); G93.41 Metabolic encephalopathy; G81.94 Hemiplegia, unspecified affecting left nondominant side; F17.210 Nicotine dependence, cigarettes, uncomplicated; R29.6 Repeated falls; I48.91 Unspecified atrial fibrillation; E11.22 Type 2 diabetes mellitus with diabetic chronic kidney disease; I12.9 Hypertensive chronic kidney disease with stage 1 through stage 4 chronic kidney disease, or unspecified chronic kidney disease; N18.3 Chronic kidney disease, stage 3 (moderate); E11.42 Type 2 diabetes mellitus with diabetic polyneuropathy; Z79.899 Other long term (current) drug therapy; Z83.3 Family history of diabetes mellitus; Z86.73 Personal history of transient ischemic attack (TIA), and cerebral infarction without residual deficits; Z90.49 Acquired absence of other specified parts of digestive tract
CPT/HCPCS: 36415; 70551; 80053; 80320; 82607; 82746; 85025; 87081; 92610; G0378

== ENCOUNTER 2018-11-30 22:01 | Inpatient (IN) | payer OTHER, MEDICAID ==
[~2018-11-30] VITALS: Ht 162.6 cm; Wt 65.1 kg
--- NOTE | 2018-11-30 21:30 | NUR ---
DIRECT TRANSFER FROM [facility] DR. DENNIS WAS CALLED FOR ORDERS, BUT STATED TO ADMIT TO HOSPITALIST BECAUSE SHE IS DVMG PATIENT, STATING HOSPITALIST WILL BE THE ADMITTING DOCTOR. SHE WAS ORIENTED TO NICOLAS CADE RN, ROOM 245, BED B, CALL LIGHT, BED, AND UNIT POLICIES. SHE WAS PLACED ON TELE BOX #[id number]. HER READING ON ARRIVAL WAS AFIB. BLOOD PRESSURE ON ARRIVAL WAS ELEVATED AT 186/ 106 P 52, R 20, T 97.8 O2 SAT OF 90%, PAIN STATED 0/0-10, A/OX3, EASY TO REORIENT, HARD FOR PATIENT FIND CERTAIN WORDS, SOMETIMES STATING INAPPROPRIATE RESPONSES. SLIGHT FACE DROOP ON LEFT SIDE, LEFT SIDE DILATED PUPIL, WEAKNESS UPON STANDING WITH UNSTEADY GAIT. PATIENT STATES THAT SHE HAD A STROKE LAST WEEK. PATIENT PLACED ON 1 L OXYGEN, WEIGHED AT BED SCALE AND ENCOURAGED TO CALL PRN. BED PLACED IN LOWEST POSITION, LOCKED, CALL LIGHT IS IN REACH, FALL BAND ON AND BED ALARM ON. WILL CONTINUE TO MONITOR.
[2018-11-30 22:00] VITALS: BP 159/93
[~2018-11-30 22:01] MED LIST changes: -AML5T PO; -LOSA100T33 PO
[2018-11-30 23:16] VITALS: BP 159/93
[2018-12-01] VITALS (7 sets, daily range): BP systolic 145–163; BP diastolic 62–94
[2018-12-01] MEDS ORDERED: PNEUMOCOCCAL VACC POLYS 25 MCG/0.5 ML VIAL IM ONE
[2018-12-01] MEDS ORDERED: cloNIDine HCL 0.1 MG TAB PO PRN
[2018-12-01] MEDS ORDERED: INFLUENZA QUAD 2018-2019 0.5 ML SYRG IM ONE
--- NOTE | 2018-12-01 00:10 | NUR ---
NON-SUSTAINED HR IN 30'S VITALS SIGNS AND ORIENTATION IN PATIENT NORMAL BASELINE. EKG TAKEN. READING SHOWED 57 BPM WITH A 1ST DEGREE BLOCK. EKG THEN TAKEN TO ARUN ORTIZ, SIGNED, AND PLACED IN CHART. WILL CONTINUE TO MONITOR.
[2018-12-01 00:47] LABS: Basophils # (auto) 0 uL; Basophils % (auto) 0.7 % (0.0-2.0); Eosinophils # (auto) 0.1 uL; Eosinophils % (auto) 1.4 % (0.0-7.0); Hematocrit 37.5 % (36.0-46.0); Hemoglobin 11.9 g/dL (12.2-16.2); Lymphocytes # (auto) 2.4 uL; Lymphocytes % (auto) 36.2 % (10.0-50.0); Mean Corpuscular Hemoglobin 28.6 pg (28.0-32.0); Mean Corpuscular Hgb Conc. 31.7 g/dL (32.0-36.0); Mean Corpuscular Volume 90.3 fL (80.0-100.0); Monocytes # (auto) 0.6 uL; Monocytes % (auto) 8.6 % (0.0-12.0); Neutrophils # (auto) 3.6 uL; Neutrophils % (auto) 53.1 % (37.0-80.0); Platelet Count (auto) 231 10^3/uL (140-450); Red Blood Cells 4.15 10^6/uL (4.0-5.20); Red Cell Distribution Width 14.8 % (11.8-14.3); White Blood Cell 6.8 10^3/uL (4.4-10.8)
[2018-12-01 01:02] LABS: Partial Thromboplastin Time 31.6 sec (23.78-33.04); Prothrombin Time 10.7 sec (9.27-12.13)
[2018-12-01 01:05] LABS: Albumin 2.7 g/dL (3.4-5.0); Calcium 8.3 mg/dL (8.5-10.1)
[2018-12-01 01:07] LABS: BUN/Creatinine Ratio 17.2
[2018-12-01 01:10] LABS: Bilirubin, Total 0.5 mg/dL (0.2-1.0); Total Protein 6.6 g/dL (6.4-8.2)
--- NOTE | 2018-12-01 03:02 | NUR ---
UA AND MRSA SENT TO LAB
--- NOTE | 2018-12-01 07:09 | NUR ---
CLOSING NOTE PATIENT IS RESTING IN BED COMFORTABLY WITH EVEN AND UNLABORED RESPIRATIONS, NO DISTRESS NOTED. BED IS LOW, LOCKED, AND CALL LIGHT WITHIN REACH. CARE TRANSFERRED TO DAY SHIFT PING VALDES.
[2018-12-01] MEDS: LORazepam 0.5 MG TAB PO PRN ×2 (07:22→21:23)
--- NOTE | 2018-12-01 07:30 | NUR ---
OPENING NOTE Report received. Upon initial assessment patient was observed sitting in bed. Patient was alert and orientated to self, and time but was confused about the reason why she was hospitalized and location. Safety precautions in place, bed left in lowest position, and call light left within reach. Patient continued to ask about when she was going to leave. Will continue to monitor patient.
[2018-12-01 09:15] LABS: Urine Bacteria FEW /hpf (None Seen); Urine Blood TRACE /uL (Negative); Urine WBC 11 /hpf (0 - 5)
[2018-12-01] MEDS: cefTRIAXone 1GM/50ML D5W 50 ML IV SCH (09:48)
[2018-12-01] MEDS: HCTZ 25 MG TAB PO SCH (10:00)
[2018-12-01] MEDS: LISINOPRIL 20 MG TAB PO SCH (10:04)
[2018-12-01] MEDS: APIXABAN 5 MG TAB PO SCH ×2 (10:04→21:23)
--- NOTE | 2018-12-01 10:30 | NUR ---
STATUS UPDATE Patient continued to remove ECG leads. Patient was educated on the importance of the need to continuous heart monitoring. She agreed to leave them on however about an hour later she remove them again and stated she does not need or want them on. Patient also refused the flu vaccine and pneumonia vaccine.
--- NOTE | 2018-12-01 12:20 | NUR ---
VI PATIENT'S FAMILY CALLED AND PATIENT'S SON LETTY IS VI PHONE NUMBER IS .
--- NOTE | 2018-12-01 13:00 | NUR ---
Patient refusal Patient was given non-skid socks for safety measures but patient removed them refusing to put them back on. Patient was educated on the importance and purpose of the socks to prevent slipping and falling. Patient did not verbalize understanding and refused to put on socks.
--- NOTE | 2018-12-01 13:20 | NUR ---
Patient's Family Patient's sister was at bedside at 0900 and stated that the patient was not able to discharge home because she lived alone and would not be capable of to take care of herself due to her wandering and confusion. She also stated that no one would be able to take care of her if she discharged from the hospital and stated she would like the patient to remain here at the hospital for safety. Patient's step-grandson Wero was at bedside at 1320 and stated that he was not able to remain with the patient during her stay here and no one else was able to stay because all her family lived in different states. Wero left his contact information.
--- NOTE | 2018-12-01 13:44 | NUR ---
Medication refusal Offered the patient ordered Ativan to help with her anxiousness but patient refused stating she does not want drugs.
--- NOTE | 2018-12-01 14:00 | NUR ---
Wandering Patient continuously wanders around the unit attempting to leave. Patient states she is that she is going home. Patient is redirected, reorientated, and educated on using non-skid socks for safety and to prevents falls. Patient refuses to wear non-skid socks.
--- NOTE | 2018-12-01 14:25 | NUR ---
MD MANCIA AT BEDSIDE. UPDATED MD ON PATIENT'S STATUS, INFORMED MD PATIENT HAS PERIODS OF CONFUSION, WANDERS, REFUSED MEDICATIONS AND TELEMETRY BOX. MD IS AWARE AND WILL PUT IN ORDERS. WILL FOLLOW THROUGH WITH NEW ORDERS
--- NOTE | 2018-12-01 14:34 | NUR ---
Downgrade to med-surg Dr. Cochran was informed that patient would not leave on tele monitor Dr. Cochran downgraded patient to med-surg
--- NOTE | 2018-12-01 14:36 | NUR ---
Pt is an alert and oriented female that resides alone. Pt states she functions independently and although she has a fww as well as a w/c in the home she does not use them. Pt states she has a sister, Jackeline, in the area that is available to help her when they are not arguing. Pt declined resources for in home assistance or placement for assisted living. Pt states she has transportation home with her sister. Pt verbalized understanding and agreeance with d/c plan. Addendum: 12/01/18 at 1439 by GUANACO GUZMAN Amended: Links added.
[2018-12-01] MEDS ORDERED: DEXTROSE (50%) 50ML SYRG IV PRN (16:30)
[2018-12-01] MEDS ORDERED: THIAMINE HCL 100 MG TAB PO ONE (16:30)
[2018-12-01] MEDS: ACCU-CHEK COMFORT CURVE STRIP VI SCH ×2 (17:00→21:25)
[2018-12-01] MEDS: InsuLIN REG 1unit/0.01ml Soln (100units/ml) SC SCH ×2 (18:00→21:32)
--- NOTE | 2018-12-01 18:51 | NUR ---
PAGED LONG WINDER TENDER HOSPITALIST FOR PATIENT'S BLOOD PRESSURE OF 154/72 mmHg AND HEART RATE 45. AWAITING CALL BACK.
--- NOTE | 2018-12-01 19:05 | NUR ---
DR. JOHNSON CALLED BACK. INFORMED MD OF PATIENT'S BLOOD PRESSURE AND HEART RATE. MD ORDERED HYDRALAZINE TO BE GIVEN IF SBP >160. WILL INFORM KINESEOLOGIST RN
[2018-12-01] MEDS ORDERED: hydrALAZINE HCL 20 MG/ML VL IV PRN (19:15)
--- NOTE | 2018-12-01 19:18 | NUR ---
CLOSING SHIFT NOTE ENDORSED CARE TO HIDE SALTER PING DOCKERY. PATIENT HAS NO S/S OF DISTRESS/SOB OR PAIN AT THIS TIME.
--- NOTE | 2018-12-01 19:40 | NUR ---
Opening Shift Note Assumed care of patient, oriented x2, cooperative, sitter at bedside. No S/S of distress/SOB or pain. Reoriented to time, place and situation. Instructed on POC and to call for assist PRN, patient verbalized understanding, will continue to monitor for changes Q1hr and PRN.
[2018-12-01] MEDS: ATORVASTATIN 20 MG TAB PO SCH (21:23)
[2018-12-02] VITALS (8 sets, daily range): BP systolic 110–162; BP diastolic 50–96
--- NOTE | 2018-12-02 01:00 | NUR ---
Patient confused, took off tele box and wanted to go home. Reoriented patient and tried to put back tele box but patient refused at this time, will try later
[2018-12-02] MEDS: ACCU-CHEK COMFORT CURVE STRIP VI SCH ×4 (05:41→21:51)
[2018-12-02] MEDS: InsuLIN REG 1unit/0.01ml Soln (100units/ml) SC SCH ×4 (05:41→22:07)
[2018-12-02 05:52] LABS: Basophils # (auto) 0.1 uL; Eosinophils # (auto) 0.1 uL; Eosinophils % (auto) 2.1 % (0.0-7.0); Hematocrit 38.9 % (36.0-46.0); Hemoglobin 12.6 g/dL (12.2-16.2); Lymphocytes # (auto) 2.2 uL; Lymphocytes % (auto) 33.8 % (10.0-50.0); Mean Corpuscular Hemoglobin 28.8 pg (28.0-32.0); Mean Corpuscular Hgb Conc. 32.3 g/dL (32.0-36.0); Mean Corpuscular Volume 89.2 fL (80.0-100.0); Monocytes # (auto) 0.6 uL; Monocytes % (auto) 8.7 % (0.0-12.0); Neutrophils # (auto) 3.6 uL; Neutrophils % (auto) 54.4 % (37.0-80.0); Nucleated Red Blood Cells % 0.1 %; Platelet Count (auto) 233 10^3/uL (140-450); Red Blood Cells 4.36 10^6/uL (4.0-5.20); Red Cell Distribution Width 14.1 % (11.8-14.3); White Blood Cell 6.6 10^3/uL (4.4-10.8)
[2018-12-02 06:11] LABS: Anion Gap 10 (5-15); Blood Urea Nitrogen 20 mg/dL (7-18); Calcium 8.9 mg/dL (8.5-10.1); Carbon Dioxide 21 mmol/L (21-32); Chloride 106 mmol/L (98-107); Glucose 139 mg/dL (74-106); Magnesium 1.8 mg/dL (1.6-2.6); Potassium 3.9 mmol/L (3.5-5.1); Sodium 137 mmol/L (136-145)
[2018-12-02 06:19] LABS: BUN/Creatinine Ratio 16.7; GFR African American 57 mL/min; GFR Non-African American 47 mL/min
--- NOTE | 2018-12-02 07:30 | NUR ---
Opening Shift Note Assumed care of patient, awake and alert. No S/S of distress/SOB or pain. Instructed on POC and to call for assist PRN, will continue to monitor for changes Q1hr and PRN. Addendum: 12/02/18 at 1716 by Glenny Banks RN SITTER AT BEDSIDE. PT ALERT AND ORIENTED X 4.
[2018-12-02] MEDS: PANTOPRAZOLE 40 MG TAB PO SCH (09:56)
[2018-12-02] MEDS: HCTZ 25 MG TAB PO SCH (09:56)
[2018-12-02] MEDS: APIXABAN 5 MG TAB PO SCH ×2 (09:57→21:51)
[2018-12-02] MEDS: THIAMINE HCL 100 MG TAB PO SCH (09:57)
[2018-12-02] MEDS: LISINOPRIL 20 MG TAB PO SCH (10:00)
--- NOTE | 2018-12-02 15:00 | NUR ---
IV insertion IV access obtained, via clean sterile technique by inserting 22 gauge catheter at RIGHT ARM after 2 attempt(s). IV secured properly. No trauma to site. Patient tolerated well. NOTE:
[2018-12-02] MEDS: cefTRIAXone 1GM/50ML D5W 50 ML IV SCH (17:13)
--- NOTE | 2018-12-02 19:41 | NUR ---
OPENING NOTES RECEIVED REPORT FROM DAYSHIFT NURSE. PT IS A/O X4 WITH NO S/S OF DISTRESS NOR PAIN. SITTER IS AT BEDSIDE. BED IS IN LOWEST POSITION WITH SIDE RAILS UP X 2. BED BRAKES ARE LOCKED AND CALL LIGHT IS WITH IN REACH. HOB IS 30 DEGREES. DISCUSSED POC WITH PT AND PT VERBALIZED UNDERSTANDING.
[2018-12-02] MEDS: ATORVASTATIN 20 MG TAB PO SCH (21:51)
[2018-12-02] MEDS: LORazepam 0.5 MG TAB PO PRN (22:07)
[2018-12-03 05:27] VITALS: BP 142/77
[2018-12-03] MEDS: InsuLIN REG 1unit/0.01ml Soln (100units/ml) SC SCH (06:12)
[2018-12-03] MEDS: ACCU-CHEK COMFORT CURVE STRIP VI SCH (06:12)
[2018-12-03 06:24] LABS: Potassium 3.7 mmol/L (3.5-5.1)
[2018-12-03 06:40] LABS: BUN/Creatinine Ratio 17.9; Calcium 8.5 mg/dL (8.5-10.1)
--- NOTE | 2018-12-03 07:12 | NUR ---
closing notes endorsed care to day shift nurseGlenny.
--- NOTE | 2018-12-03 07:30 | NUR ---
Opening Shift Note Assumed care of patient, awake and alert. No S/S of distress/SOB or pain. Instructed on POC and to call for assist PRN, will continue to monitor for changes Q1hr and PRN. SITTER AT BEDSIDE.
[2018-12-03 08:00] VITALS: BP 134/89
[2018-12-03] MEDS: cefTRIAXone 1GM/50ML D5W 50 ML IV SCH (09:01)
[2018-12-03 09:13] VITALS: BP 134/89
[2018-12-03] MEDS: THIAMINE HCL 100 MG TAB PO SCH (09:54)
[2018-12-03] MEDS: PANTOPRAZOLE 40 MG TAB PO SCH (09:54)
[2018-12-03] MEDS: APIXABAN 5 MG TAB PO SCH (09:54)
[2018-12-03] MEDS: HCTZ 25 MG TAB PO SCH (09:55)
[2018-12-03] MEDS: LISINOPRIL 20 MG TAB PO SCH (09:56)
[2018-12-03] MEDS ORDERED: ACETAMINOPHEN 325 MG TAB PO ONE (10:00)
[2018-12-03 10:33] VITALS: BP 134/89
[2018-12-03 11:04] VITALS: BP 134/89
== END 2018-12-03 12:00 | disposition home or self-care (01) | DRG 292 ==
LOC: TELE-EAST 22:01 → EAST 12-01 15:22 → TELE-EAST 12-01 18:32
PROVIDERS: ADMIT Internal Medicine; ATTEND Internal Medicine
DX: I13.0 Hypertensive heart and chronic kidney disease with heart failure and stage 1 through stage 4 chronic kidney disease, or unspecified chronic kidney disease (principal); N39.0 Urinary tract infection, site not specified; E44.0 Moderate protein-calorie malnutrition; I31.3 Pericardial effusion (noninflammatory); I50.32 Chronic diastolic (congestive) heart failure; E11.21 Type 2 diabetes mellitus with diabetic nephropathy; E11.22 Type 2 diabetes mellitus with diabetic chronic kidney disease; F10.10 Alcohol abuse, uncomplicated; E11.42 Type 2 diabetes mellitus with diabetic polyneuropathy; I48.0 Paroxysmal atrial fibrillation; N18.3 Chronic kidney disease, stage 3 (moderate); Z83.3 Family history of diabetes mellitus; Z68.24 Body mass index [BMI] 24.0-24.9, adult; Z86.73 Personal history of transient ischemic attack (TIA), and cerebral infarction without residual deficits
CPT/HCPCS: 36415; 71045; 80048; 80053; 81001; 82962; 83605; 83735; 83880; 84484; 85025; 85610; 85730; 87040; 87081; 87086; 87088; 87186; 93005; 97163; G0378; J0696; J1815

== ENCOUNTER 2018-12-13 08:07 | Inpatient (IN) | payer OTHER, MEDICAID | END 2018-12-15 16:30 | disposition home health service (06) | LOC: ER 08:07 → OVERFLOW 20:43 → WEST WING 22:05 | DX: R53.1 Weakness (principal); R62.7 Adult failure to thrive; N18.3 Chronic kidney disease, stage 3 (moderate); E11.22 Type 2 diabetes mellitus with diabetic chronic kidney disease ==

== ENCOUNTER → 2019-01-16 | Outpatient (CLI) | payer OTHER, MEDICAID ==
[2019-01-16 09:35] LABS: Basophils # (auto) 0 uL; Basophils % (auto) 0.6 % (0.0-2.0); Eosinophils # (auto) 0.1 uL; Eosinophils % (auto) 1.1 % (0.0-7.0); Hematocrit 40.5 % (36.0-46.0); Hemoglobin 13.2 g/dL (12.2-16.2); Lymphocytes # (auto) 2.3 uL; Lymphocytes % (auto) 30.1 % (10.0-50.0); Mean Corpuscular Hemoglobin 29.2 pg (28.0-32.0); Mean Corpuscular Hgb Conc. 32.6 g/dL (32.0-36.0); Mean Corpuscular Volume 89.6 fL (80.0-100.0); Monocytes # (auto) 0.5 uL; Monocytes % (auto) 6.7 % (0.0-12.0); Neutrophils # (auto) 4.7 uL; Neutrophils % (auto) 61.5 % (37.0-80.0); Platelet Count (auto) 278 10^3/uL (140-450); Red Blood Cells 4.52 10^6/uL (4.0-5.20); Red Cell Distribution Width 14.2 % (11.8-14.3); White Blood Cell 7.7 10^3/uL (4.4-10.8)
[2019-01-16 09:40] LABS: Urine Bacteria FEW /hpf (None Seen); Urine Blood TRACE /uL (Negative); Urine Specific Gravity 1.009 (1.001-1.035); Urine WBC 73 /hpf (0 - 5)
[2019-01-16 09:42] LABS: Potassium 4.4 mmol/L (3.5-5.1); Uric Acid 6.4 mg/dL (2.6-6.0)
[2019-01-16 09:49] LABS: Albumin 3.4 g/dL (3.4-5.0); BUN/Creatinine Ratio 22.6; Bilirubin, Total 0.6 mg/dL (0.2-1.0); Calcium 9.6 mg/dL (8.5-10.1); Total Protein 8.2 g/dL (6.4-8.2)
[2019-01-16 10:03] LABS: Folate (Folic Acid) 7.43 ng/mL (5.38-24)
== END | disposition home or self-care (01) ==
LOC: LAB 07:49
PROVIDERS: ATTEND Nurse Practitioner
DX: E78.5 Hyperlipidemia, unspecified (principal); I12.9 Hypertensive chronic kidney disease with stage 1 through stage 4 chronic kidney disease, or unspecified chronic kidney disease; E11.22 Type 2 diabetes mellitus with diabetic chronic kidney disease; N18.3 Chronic kidney disease, stage 3 (moderate)
CPT/HCPCS: 36415; 80053; 80061; 81001; 82043; 82306; 82607; 82746; 83036; 84443; 84550; 85025

== ENCOUNTER 2019-01-24 17:17 | Inpatient (IN) | payer OTHER ==
[~2019-01-24] VITALS: Ht 1 cm; Wt 48.2 kg
[~2019-01-24 17:17] MED LIST changes: +ASPI81TA27 PO
[2019-01-24] MEDS ORDERED: MORPHINE SULF INJ 2 MG/ML SYRINGE 1ML IV PRN (19:45)
[2019-01-24] MEDS ORDERED: DEXTROSE (50%) 50ML SYRG IV PRN (19:45)
[2019-01-24] MEDS ORDERED: NITROGLYCERIN 0.4 MG SL TAB SL PRN (19:45)
[2019-01-24 22:00] VITALS: BP 106/66
--- NOTE | 2019-01-24 22:00 | NUR ---
Telemetry admit from ER RICK GARZA admitted to Telemetry unit after SBAR received. Patient oriented to Laura Ann, primary RN, unit, room, bed, and unit policies regarding patient care and visiting hours. Patient now on continuous telemetry monitoring, tele box # 30 and telemetry reading on arrival to unit is 102 . Patient placed on bedside oxygen, weighed by bedscale and encouraged to call if they need something. All questions and concerns addressed, patient verbalized understanding. Note:
[2019-01-24] MEDS: GABAPENTIN 300 MG CAP PO SCH (22:45)
[2019-01-24] MEDS: InsuLIN REG 1unit/0.01ml Soln (100units/ml) SC SCH (23:15)
[2019-01-24] MEDS: ACCU-CHEK COMFORT CURVE STRIP VI SCH (23:15)
[2019-01-25 05:00] VITALS: BP 104/64
[2019-01-25 06:26] LABS: Basophils # (auto) 0.1 uL; Basophils % (auto) 0.7 % (0.0-2.0); Eosinophils # (auto) 0.1 uL; Eosinophils % (auto) 1.1 % (0.0-7.0); Hematocrit 36.5 % (36.0-46.0); Lymphocytes # (auto) 2.8 uL; Lymphocytes % (auto) 31.1 % (10.0-50.0); Mean Corpuscular Hemoglobin 29.1 pg (28.0-32.0); Mean Corpuscular Hgb Conc. 32.9 g/dL (32.0-36.0); Mean Corpuscular Volume 88.4 fL (80.0-100.0); Monocytes # (auto) 0.8 uL; Monocytes % (auto) 9.1 % (0.0-12.0); Neutrophils # (auto) 5.2 uL; Nucleated Red Blood Cells % 0.1 %; Platelet Count (auto) 319 10^3/uL (140-450); Red Blood Cells 4.13 10^6/uL (4.0-5.20); Red Cell Distribution Width 14.2 % (11.8-14.3)
[2019-01-25] MEDS: ACCU-CHEK COMFORT CURVE STRIP VI SCH ×3 (06:55→18:11)
[2019-01-25] MEDS: InsuLIN REG 1unit/0.01ml Soln (100units/ml) SC SCH ×3 (06:55→18:11)
[2019-01-25 07:06] LABS: Potassium 3.5 mmol/L (3.5-5.1)
[2019-01-25 07:09] LABS: BUN/Creatinine Ratio 21.9
--- NOTE | 2019-01-25 07:46 | NUR ---
OPENING NOTE Assumed care of patient from NOC RNLaura. Patient awake and alert with no S/S of distress/SOB or pain. Instructed on POC and to call for assist PRN, verbalized understanding. Bed in lowest, locked position with side rails up x2. Fall precautions in place and call light within reach. Will continue to monitor for changes Q1hr and PRN.
[2019-01-25 09:00] VITALS: BP 117/72
[2019-01-25] MEDS ORDERED: LORazepam 2MG/ML-1ML VIAL IV PRN (09:15)
[2019-01-25] MEDS ORDERED: ASPirin-EC 81 mg tab PO SCH (10:00)
[2019-01-25] MEDS ORDERED: ATORVASTATIN 20 MG TAB PO SCH (10:00)
[2019-01-25] MEDS: GABAPENTIN 300 MG CAP PO SCH (10:23)
[2019-01-25] MEDS ORDERED: FOLIC ACID 1 MG, MULTIPLE VITAMIN 10 ML, MAGNESIUM SULF SDV 50% 8 MEQ, THIAMINE INJ 100... INJ SCH ×5 (12:00)
[2019-01-25 13:00] VITALS: BP 115/64
[2019-01-25] MEDS ORDERED: APIX5TAB PO (13:36)
--- NOTE | 2019-01-25 15:15 | NUR ---
assessment Patient is a 73 year old female who is alert and oriented. Prior to admission patient lived home alone and functioned independently. Patient informed me she has a fww and a cane for home use. Patient informed me she was brought back to ER for a fall at the car wash. Patient informed me she was out paying bills and getting her car washed when she dropped her money and she bent down to pick it up and fell and hit her head. Patient wants to return home on discharge. Patient may benefit from home health PT on discharge. I spoke with patient regarding previous home health attempts. Per patient she will accept home health. Patient agreed to discharge plan home with home PT. Addendum: 01/25/19 at 1522 by Sana GUZMAN Amended: Links added.
[2019-01-25 16:57] VITALS: BP 105/75
[2019-01-25 18:42] VITALS: BP 105/75
--- NOTE | 2019-01-25 18:42 | NUR ---
FAMILY Spoke with patient's sister, Jackeline. Aware of patient's discharge.
--- NOTE | 2019-01-25 19:30 | NUR ---
assumed care, pt. awake, waiting for transport to d/c [facility].
--- NOTE | 2019-01-25 19:40 | NUR ---
CLOSING NOTE Endorsed care of patient to NOC RNLaura. RN aware of patient's pending discharge and need for taxi voucher.
--- NOTE | 2019-01-25 20:26 | NUR ---
pt. d/c home, d/c instruction given to pt. iv and classroom monitor removed and sent to tigre, pt. in stable condition.
== END 2019-01-25 20:25 | disposition home health service (06) | DRG 948 ==
LOC: TELE-WESTW 21:15
PROVIDERS: ADMIT Nurse Practitioner Acute Care; ATTEND Internal Medicine
DX: R53.1 Weakness (principal); G81.94 Hemiplegia, unspecified affecting left nondominant side; E78.00 Pure hypercholesterolemia, unspecified; E78.5 Hyperlipidemia, unspecified; F17.210 Nicotine dependence, cigarettes, uncomplicated; G62.9 Polyneuropathy, unspecified; I10 Essential (primary) hypertension; H53.8 Other visual disturbances; E11.40 Type 2 diabetes mellitus with diabetic neuropathy, unspecified; I48.91 Unspecified atrial fibrillation; K21.9 Gastro-esophageal reflux disease without esophagitis; Z79.01 Long term (current) use of anticoagulants; I25.2 Old myocardial infarction; Z79.82 Long term (current) use of aspirin; Z79.84 Long term (current) use of oral hypoglycemic drugs; Z79.899 Other long term (current) drug therapy; Z82.3 Family history of stroke; Z83.3 Family history of diabetes mellitus; Z86.73 Personal history of transient ischemic attack (TIA), and cerebral infarction without residual deficits; Z90.49 Acquired absence of other specified parts of digestive tract
CPT/HCPCS: 36415; 80048; 82962; 85025; 87081; 93886; G0378; J1815

== ENCOUNTER 2019-02-19 17:14 | Emergency (ER) | payer OTHER ==
[~2019-02-19] VITALS: Ht 162.6 cm; Wt 62.1 kg
[~2019-02-19 17:14] MED LIST changes: +APIX5TAB PO; +ASPI-404 PO; -ASPI81TA27 PO; +LEV25T PO
[2019-02-19 19:52] LABS: Basophils # (auto) 0.1 uL; Basophils % (auto) 0.7 % (0.0-2.0); Eosinophils # (auto) 0.2 uL; Hematocrit 27.6 % (36.0-46.0); Hemoglobin 8.9 g/dL (12.2-16.2); Lymphocytes # (auto) 3.1 uL; Mean Corpuscular Hemoglobin 28.8 pg (28.0-32.0); Mean Corpuscular Hgb Conc. 32.5 g/dL (32.0-36.0); Mean Corpuscular Volume 88.8 fL (80.0-100.0); Monocytes # (auto) 0.6 uL; Monocytes % (auto) 7.6 % (0.0-12.0); Neutrophils # (auto) 3.9 uL; Neutrophils % (auto) 49.7 % (37.0-80.0); Platelet Count (auto) 255 10^3/uL (140-450); White Blood Cell 7.9 10^3/uL (4.4-10.8)
[2019-02-19 20:13] LABS: Albumin 2.8 g/dL (3.4-5.0); Anion Gap 9 (5-15); Blood Alcohol < 3.0 mg/dL (0-5); Blood Urea Nitrogen 29 mg/dL (7-18); Calcium 8.8 mg/dL (8.5-10.1); Carbon Dioxide 23 mmol/L (21-32); Chloride 107 mmol/L (98-107); Glucose 177 mg/dL (74-106); Potassium 5.1 mmol/L (3.5-5.1); Sodium 139 mmol/L (136-145)
[2019-02-19 20:19] LABS: Alanine Aminotransferase 13 U/L (13-56); Alkaline Phosphatase 108 U/L (45-117); Aspartate Aminotransferase 12 U/L (15-37); BUN/Creatinine Ratio 17.7; Bilirubin, Total 0.3 mg/dL (0.2-1.0); GFR African American 40 mL/min; GFR Non-African American 33 mL/min; Total Protein 6.9 g/dL (6.4-8.2)
[2019-02-19] MEDS ORDERED: SODIUM CHLORIDE 0.9% 1,000 ML IV ONE (21:15)
[2019-02-19] MEDS ORDERED: THIAMINE 100mg/ml INJ (200mg/2ml VIAL) IV ONE (21:15)
[2019-02-20 01:19] VITALS: BP 132/59
== END 2019-02-20 02:17 | disposition home or self-care (01) ==
LOC: EDBD 17:14 → ER 17:18
DX: F10.239 Alcohol dependence with withdrawal, unspecified (principal); Y99.0 Civilian activity done for income or pay; F17.210 Nicotine dependence, cigarettes, uncomplicated; E11.9 Type 2 diabetes mellitus without complications; I10 Essential (primary) hypertension; I25.2 Old myocardial infarction; Z86.73 Personal history of transient ischemic attack (TIA), and cerebral infarction without residual deficits; Z90.710 Acquired absence of both cervix and uterus; Z90.49 Acquired absence of other specified parts of digestive tract
CPT/HCPCS: 36415; 71045; 80053; 80320; 83735; 84484; 85025; 93005; 94761; 96361; 96374; 99284; J3411; J7030

== ENCOUNTER 2019-02-26 13:07 | Emergency (ER) | payer OTHER ==
[~2019-02-26] VITALS: Ht 162.6 cm; Wt 54.4 kg
[2019-02-26 14:12] LABS: Basophils # (auto) 0 uL; Basophils % (auto) 0.7 % (0.0-2.0); Eosinophils # (auto) 0.1 uL; Eosinophils % (auto) 1.5 % (0.0-7.0); Hematocrit 28.6 % (36.0-46.0); Hemoglobin 9.3 g/dL (12.2-16.2); Lymphocytes # (auto) 2.5 uL; Lymphocytes % (auto) 37.2 % (10.0-50.0); Mean Corpuscular Hemoglobin 29.2 pg (28.0-32.0); Mean Corpuscular Hgb Conc. 32.4 g/dL (32.0-36.0); Monocytes # (auto) 0.5 uL; Neutrophils # (auto) 3.5 uL; Neutrophils % (auto) 52.6 % (37.0-80.0); Platelet Count (auto) 247 10^3/uL (140-450); Red Blood Cells 3.18 10^6/uL (4.0-5.20); Red Cell Distribution Width 15.1 % (11.8-14.3); White Blood Cell 6.7 10^3/uL (4.4-10.8)
[2019-02-26 14:22] LABS: Albumin 2.7 g/dL (3.4-5.0); Anion Gap 12 (5-15); Blood Urea Nitrogen 32 mg/dL (7-18); Calcium 8.2 mg/dL (8.5-10.1); Carbon Dioxide 18 mmol/L (21-32); Chloride 107 mmol/L (98-107); Glucose 172 mg/dL (74-106); Potassium 3.8 mmol/L (3.5-5.1); Sodium 137 mmol/L (136-145)
[2019-02-26 14:40] LABS: Alanine Aminotransferase 13 U/L (13-56); Alkaline Phosphatase 103 U/L (45-117); Aspartate Aminotransferase 11 U/L (15-37); BUN/Creatinine Ratio 20.1; Bilirubin, Total 0.3 mg/dL (0.2-1.0); GFR African American 41 mL/min; GFR Non-African American 34 mL/min; Total Protein 6.6 g/dL (6.4-8.2)
[2019-02-26 16:45] VITALS: BP 112/62
== END 2019-02-26 17:01 | disposition home or self-care (01) ==
LOC: ER 13:07 → EDBD 13:07 → ER 17:01
DX: D64.9 Anemia, unspecified (principal); E11.9 Type 2 diabetes mellitus without complications; I10 Essential (primary) hypertension; I25.2 Old myocardial infarction; I48.91 Unspecified atrial fibrillation; F17.210 Nicotine dependence, cigarettes, uncomplicated; Z86.73 Personal history of transient ischemic attack (TIA), and cerebral infarction without residual deficits; Z90.710 Acquired absence of both cervix and uterus
CPT/HCPCS: 36415; 71046; 80053; 80320; 83735; 84484; 85025; 93005; 94761

== ENCOUNTER 2019-03-09 17:14 | Inpatient (IN) | payer MEDICARE, OTHER ==
[~2019-03-09] VITALS: Ht 162.6 cm; Wt 71.2 kg
[2019-03-09] MEDS ORDERED: SODIUM CHLORIDE 0.9% 1,000 ML IV ONE ×2 (18:03)
[2019-03-09 18:10] LABS: Basophils # (auto) 0 uL; Basophils % (auto) 0.1 % (0.0-2.0); Eosinophils # (auto) 0 uL; Hematocrit 33.1 % (36.0-46.0); Hemoglobin 10.5 g/dL (12.2-16.2); Lymphocytes # (auto) 1.6 uL; Lymphocytes % (auto) 7.2 % (10.0-50.0); Mean Corpuscular Hemoglobin 28.2 pg (28.0-32.0); Mean Corpuscular Hgb Conc. 31.8 g/dL (32.0-36.0); Mean Corpuscular Volume 88.5 fL (80.0-100.0); Monocytes # (auto) 1.2 uL; Monocytes % (auto) 5.3 % (0.0-12.0); Neutrophils # (auto) 19.7 uL; Neutrophils % (auto) 87.4 % (37.0-80.0); Platelet Count (auto) 293 10^3/uL (140-450); Red Blood Cells 3.74 10^6/uL (4.0-5.20); Red Cell Distribution Width 14.5 % (11.8-14.3); White Blood Cell 22.5 10^3/uL (4.4-10.8)
[2019-03-09 18:32] LABS: Alanine Aminotransferase 10 U/L (13-56); Albumin 2.7 g/dL (3.4-5.0); Anion Gap 16 (5-15); Aspartate Aminotransferase 14 U/L (15-37); BUN/Creatinine Ratio 20.7; Blood Urea Nitrogen 42 mg/dL (7-18); Calcium 8.7 mg/dL (8.5-10.1); Carbon Dioxide 19 mmol/L (21-32); Chloride 98 mmol/L (98-107); GFR African American 31 mL/min; GFR Non-African American 26 mL/min; Glucose 396 mg/dL (74-106); Potassium 3.9 mmol/L (3.5-5.1); Sodium 133 mmol/L (136-145)
[2019-03-09 18:36] LABS: Alkaline Phosphatase 104 U/L (45-117); Bilirubin, Total 0.8 mg/dL (0.2-1.0); Total Protein 7.3 g/dL (6.4-8.2)
[2019-03-09] MEDS ORDERED: InsuLIN R (HUMAN) 100 UNITS in SODIUM CHL 0.9% 99 ML IV SCH (19:35)
[2019-03-09] MEDS ORDERED: SODIUM CHLORIDE 0.9% 1,000 ML IV SCH ×2 (19:35→23:35)
[2019-03-09] MEDS ORDERED: cefTRIAXone 1GM/50ML D5W 50 ML IV ONE (19:45)
[2019-03-09] MEDS ORDERED: DEXTROSE (50%) 50ML SYRG IV PRN ×2 (19:45→21:45)
[2019-03-09 20:19] LABS: Magnesium 1.9 mg/dL (1.6-2.6); Phosphorus 4.3 mg/dL (2.5-4.90)
[2019-03-09 20:48] LABS: Lactic Acid w/Reflex 4.9 mmol/L (0.4-2.0)
[2019-03-09] MEDS ORDERED: ACCU-CHEK COMFORT CURVE STRIP VI SCH (21:00)
[2019-03-09] MEDS ORDERED: LACTULOSE 20Gm/30ML SOLN PO PRN (21:45)
[2019-03-09] MEDS ORDERED: TEMAZEPAM 15 MG CAP PO PRN (21:45)
[2019-03-09] MEDS ORDERED: ACETAMINOPHEN 325 MG TAB PO PRN (21:45)
[2019-03-09] MEDS ORDERED: ONDANSETRON HCL 4 MG/2 ML VIAL IV PRN (21:45)
[2019-03-09] MEDS ORDERED: LACTULOSE 20Gm/30ML SOLN PO ONE (21:45)
[2019-03-09] MEDS ORDERED: MORPHINE SULF INJ 2 MG/ML SYRINGE 1ML IV PRN (21:45)
[2019-03-09] MEDS ORDERED: VANCOMYCIN PER PHARMACY 0 MG IV SCH (22:00)
[2019-03-09] MEDS ORDERED: VANCOMYCIN 1GM/250ML 250 ML IV ONE (22:30)
[2019-03-09 22:40] VITALS: BP 93/56
--- NOTE | 2019-03-09 22:40 | NUR ---
Telemetry admit from [facility] admitted to Telemetry unit after SBAR received. Patient oriented to karoline PAGE RN, unit, room, bed, and unit policies regarding patient care and visiting hours. Patient now on continuous telemetry monitoring, tele box # 9 and telemetry reading on arrival to unit is atrial fibrillation heart rate 73. Patient placed on bedside oxygen, weighed by bedscale and encouraged to call as needed. All questions and concerns addressed, patient verbalized understanding. Bed is locked in lowest position, side rails x 2 are up, call light is within reach, and bed alarm is on. Addendum: 03/10/19 at 0628 by KAMI OLSEN RN RN Telemetry reading on arrival to unit is sinus arrhythmia with PAC's.
[2019-03-09] MEDS: PIPERACILLIN-TAZOB 2.25GM 50 ML IV SCH (23:21)
[2019-03-09] MEDS: InsuLIN REG 1unit/0.01ml Soln (100units/ml) SC SCH (23:50)
[2019-03-09] MEDS: ACCU-CHEK COMFORT CURVE STRIP VI SCH (23:50)
[2019-03-10] VITALS: BP 99/57
[2019-03-10] MEDS: HYDROcodone-ACET 5/325MG TAB PO PRN ×2 (01:05→05:49)
[2019-03-10] MEDS ORDERED: SODIUM CHLORIDE 0.9% 1,000 ML IV SCH (01:35)
[2019-03-10] MEDS: PIPERACILLIN-TAZOB 2.25GM 50 ML IV SCH ×4 (03:56→21:47)
[2019-03-10] MEDS: InsuLIN REG 1unit/0.01ml Soln (100units/ml) SC SCH ×5 (04:05→20:32)
[2019-03-10] MEDS: ACCU-CHEK COMFORT CURVE STRIP VI SCH ×5 (04:05→20:32)
[2019-03-10 05:00] VITALS: BP 100/51
[2019-03-10] MEDS: LEVOTHYROXINE SODIUM 25 MCG TAB PO SCH (06:20)
[2019-03-10 06:22] LABS: Basophils # (auto) 0.1 uL; Basophils % (auto) 0.3 % (0.0-2.0); Eosinophils # (auto) 0 uL; Hematocrit 27.9 % (36.0-46.0); Hemoglobin 9.1 g/dL (12.2-16.2); Lymphocytes # (auto) 1.8 uL; Lymphocytes % (auto) 9.7 % (10.0-50.0); Mean Corpuscular Hemoglobin 28.6 pg (28.0-32.0); Mean Corpuscular Hgb Conc. 32.6 g/dL (32.0-36.0); Mean Corpuscular Volume 87.9 fL (80.0-100.0); Monocytes % (auto) 5.6 % (0.0-12.0); Neutrophils # (auto) 15.9 uL; Neutrophils % (auto) 84.4 % (37.0-80.0); Platelet Count (auto) 246 10^3/uL (140-450); Red Blood Cells 3.17 10^6/uL (4.0-5.20); Red Cell Distribution Width 14.5 % (11.8-14.3); White Blood Cell 18.8 10^3/uL (4.4-10.8)
[2019-03-10 06:55] LABS: Calcium 8.6 mg/dL (8.5-10.1); Potassium 3.3 mmol/L (3.5-5.1)
[2019-03-10 06:59] LABS: BUN/Creatinine Ratio 26.5
--- NOTE | 2019-03-10 07:50 | NUR ---
Opening Shift Note Assumed care of patient, awake and alert. No S/S of distress/SOB or pain. Patient assisted to use the bedpan. Urine sample sent to lab. Bed alarm activated. Instructed on POC and to call for assist PRN, will continue to monitor for changes Q1hr and PRN.
[2019-03-10 07:57] LABS: Urine WBC None Seen /hpf (0 - 5)
[2019-03-10 08:33] LABS: Urine Bacteria FEW /hpf (None Seen); Urine Blood TRACE /uL (Negative); Urine Specific Gravity 1.019 (1.001-1.035)
[2019-03-10 09:00] VITALS: BP 95/50
[2019-03-10] MEDS: PANTOPRAZOLE 40 MG TAB PO SCH (09:29)
[2019-03-10] MEDS: GABAPENTIN 300 MG CAP PO SCH ×2 (09:29→21:47)
[2019-03-10] MEDS: APIXABAN 5 MG TAB PO SCH ×2 (09:30→21:47)
[2019-03-10 13:00] VITALS: BP 95/53
[2019-03-10 17:00] VITALS: BP 99/56
[2019-03-10] MEDS: SOD CHL 0.45% WITH 20MEQ KCL 1,000 ML IV SCH (17:10)
--- NOTE | 2019-03-10 17:12 | NUR ---
Confirmed with Tina, pharmacist re: Vancomycin administration. Tina stated "Vanco level was from the morning, you can go ahead and administer the 1800 Vancomycin.
[2019-03-10] MEDS ORDERED: VANCOMYCIN 1GM/250ML 250 ML IV ONE (18:00)
[2019-03-10 21:00] VITALS: BP 93/51
--- NOTE | 2019-03-10 22:11 | NUR ---
HOSPITALIST PAGED RE: BLOOD PRESSURE Hospitalist paged regarding blood pressure. Awaiting call back.
--- NOTE | 2019-03-10 22:22 | NUR ---
HOSPITALIST RETURNED CALL RE: BLOOD PRESSURE Made REFORMATORY ATTENDANT Nickie Pak aware of patients blood pressure. Orders for Albumin 25% in 100ml's received. Order read back and verified. Will carry out orders as received.
[2019-03-10] MEDS ORDERED: ALBUMIN 25% 100 ML IV ONE (22:30)
[2019-03-11] MEDS: SOD CHL 0.45% WITH 20MEQ KCL 1,000 ML IV SCH ×2 (02:00→11:18)
[2019-03-11] MEDS: InsuLIN REG 1unit/0.01ml Soln (100units/ml) SC SCH ×6 (04:00→20:24)
[2019-03-11 04:30] VITALS: BP 100/66
[2019-03-11] MEDS: PIPERACILLIN-TAZOB 2.25GM 50 ML IV SCH ×4 (05:05→22:49)
[2019-03-11] MEDS: ACCU-CHEK COMFORT CURVE STRIP VI SCH ×6 (05:18→20:24)
[2019-03-11] MEDS: LEVOTHYROXINE SODIUM 25 MCG TAB PO SCH (06:29)
[2019-03-11] MEDS: HYDROcodone-ACET 5/325MG TAB PO PRN (06:32)
[2019-03-11 06:51] LABS: Basophils # (auto) 0 uL; Basophils % (auto) 0.2 % (0.0-2.0); Eosinophils # (auto) 0.1 uL; Eosinophils % (auto) 0.4 % (0.0-7.0); Hematocrit 26.7 % (36.0-46.0); Hemoglobin 8.5 g/dL (12.2-16.2); Lymphocytes # (auto) 1.5 uL; Lymphocytes % (auto) 9.9 % (10.0-50.0); Mean Corpuscular Hgb Conc. 31.7 g/dL (32.0-36.0); Mean Corpuscular Volume 88.4 fL (80.0-100.0); Monocytes # (auto) 0.8 uL; Monocytes % (auto) 5.5 % (0.0-12.0); Neutrophils # (auto) 12.4 uL; Platelet Count (auto) 229 10^3/uL (140-450); Red Blood Cells 3.02 10^6/uL (4.0-5.20); Red Cell Distribution Width 14.6 % (11.8-14.3); White Blood Cell 14.7 10^3/uL (4.4-10.8)
[2019-03-11 07:16] LABS: Calcium 8.3 mg/dL (8.5-10.1); Potassium 3.8 mmol/L (3.5-5.1)
[2019-03-11 07:23] LABS: Albumin 2.4 g/dL (3.4-5.0); BUN/Creatinine Ratio 28.6; Bilirubin, Total 0.5 mg/dL (0.2-1.0); Total Protein 6.1 g/dL (6.4-8.2)
--- NOTE | 2019-03-11 07:40 | NUR ---
Opening Shift Note Assumed care of patient, awake and alert. No S/S of distress/SOB or pain. Instructed on POC and to call for assist PRN, will continue to monitor for changes Q1hr and PRN.
[2019-03-11 08:00] VITALS: BP_SYST 119; BP_SYST 93; BP_DIAS 52; BP_DIAS 60
[2019-03-11] MEDS: GABAPENTIN 300 MG CAP PO SCH ×2 (09:17→22:49)
[2019-03-11] MEDS: APIXABAN 5 MG TAB PO SCH ×2 (09:17→22:49)
[2019-03-11] MEDS: PANTOPRAZOLE 40 MG TAB PO SCH (09:18)
--- NOTE | 2019-03-11 09:30 | NUR ---
SPOKE TO MARKUS, PATIENT'S SISTER, INFORMED HER REGARDING PATIENT'S PLAN OF CARE.
[2019-03-11 12:00] VITALS: BP 103/63
[2019-03-11 17:00] VITALS: BP 119/65
[2019-03-11] MEDS ORDERED: VANCOMYCIN 500 MG in D5W 5% 100 ML IV ONE (18:00)
[2019-03-11] MEDS ORDERED: VANCOMYCIN 750 MG in D5W 5% 250 ML IV ONE (18:00)
--- NOTE | 2019-03-11 18:46 | NUR ---
Closing note Patient resting in bed. No signs of distress observed.
--- NOTE | 2019-03-11 19:30 | NUR ---
Opening Shift Note Assumed care of patient, awake and alert x4. Patient denies pain at this time. No S/S of distress noted. Instructed on plan of care and to call for assistance as needed. Bed is locked in lowest position, side rails x 2 are up, call light is within reach, and bed alarm is on.
[2019-03-11 22:42] VITALS: BP 67/65
[2019-03-12] MEDS: InsuLIN REG 1unit/0.01ml Soln (100units/ml) SC SCH ×6 (01:01→21:49)
[2019-03-12] MEDS: ACCU-CHEK COMFORT CURVE STRIP VI SCH ×6 (01:01→21:48)
[2019-03-12] MEDS: SOD CHL 0.45% WITH 20MEQ KCL 1,000 ML IV SCH ×2 (04:29→08:00)
[2019-03-12] MEDS: PIPERACILLIN-TAZOB 2.25GM 50 ML IV SCH ×4 (04:29→21:48)
[2019-03-12] MEDS: HYDROcodone-ACET 5/325MG TAB PO PRN (04:58)
[2019-03-12 05:33] VITALS: BP 122/67
[2019-03-12] MEDS: LEVOTHYROXINE SODIUM 25 MCG TAB PO SCH (06:39)
[2019-03-12 07:26] LABS: Eosinophils # (auto) 0.1 uL; Eosinophils % (auto) 0.4 % (0.0-7.0); Hematocrit 25.9 % (36.0-46.0); Monocytes # (auto) 1.4 uL; Nucleated Red Blood Cells % 0.1 %; Platelet Count (auto) 241 10^3/uL (140-450)
[2019-03-12 07:32] LABS: Basophils # (auto) 0 uL; Basophils % (auto) 0.2 % (0.0-2.0); Hemoglobin 8.3 g/dL (12.2-16.2); Lymphocytes # (auto) 1.5 uL; Mean Corpuscular Hemoglobin 28.2 pg (28.0-32.0); Mean Corpuscular Volume 88.1 fL (80.0-100.0); Monocytes % (auto) 8.4 % (0.0-12.0); Neutrophils # (auto) 13.5 uL; Red Blood Cells 2.95 10^6/uL (4.0-5.20); Red Cell Distribution Width 14.2 % (11.8-14.3); White Blood Cell 16.5 10^3/uL (4.4-10.8)
[2019-03-12 07:38] LABS: BUN/Creatinine Ratio 26.3; Calcium 8.2 mg/dL (8.5-10.1)
--- NOTE | 2019-03-12 07:50 | NUR ---
Opening Shift Note Assumed care of patient, awake and alert. No S/S of distress/SOB or pain. Instructed on POC and to call for assist PRN, will continue to monitor for changes Q1hr and PRN. Call light within reach. Side rails up x 2. Bed alarm activated.
[2019-03-12 09:23] VITALS: BP 108/56
--- NOTE | 2019-03-12 09:30 | NUR ---
SPOKE TO PT STAFF RE: ORDER FOR PT EVAL FOR PATIENT.
[2019-03-12] MEDS: GABAPENTIN 300 MG CAP PO SCH ×2 (09:38→21:48)
[2019-03-12] MEDS: APIXABAN 5 MG TAB PO SCH ×2 (09:38→21:48)
[2019-03-12] MEDS: PANTOPRAZOLE 40 MG TAB PO SCH (09:38)
[2019-03-12] MEDS ORDERED: VANCOMYCIN 1GM/250ML 250 ML IV ONE (10:00)
[2019-03-12] MEDS ORDERED: DEXTROSE (50%) 50ML SYRG IV PRN (12:00)
[2019-03-12] MEDS ORDERED: THIAMINE HCL 100 MG TAB PO ONE (12:00)
[2019-03-12] MEDS ORDERED: MULTIPLE VITAMINS W/ MINERALS TAB PO ONE (12:00)
--- NOTE | 2019-03-12 12:00 | NUR ---
Dr. Cochran at bedside.
[2019-03-12 13:14] VITALS: BP 124/63
[2019-03-12] MEDS: SODIUM CHLORIDE 0.9% 1,000 ML IV SCH (14:37)
[2019-03-12] MEDS: LIDOCAINE 5% TOPICAL PATCH TOP SCH (15:07)
[2019-03-12 17:00] VITALS: BP 116/71
--- NOTE | 2019-03-12 19:20 | NUR ---
Opening Shift Note Received report from Bairon FENG. Assumed care of patient, awake and alert. No S/S of distress/SOB or pain. Instructed on POC and to call for assist PRN. Bed in lowest position, side rails up x2, bed alarm on, call light and belongings in place. Will continue to monitor for changes Q1hr and PRN.
[2019-03-12 21:55] VITALS: BP 159/79
--- NOTE | 2019-03-12 22:35 | NUR ---
IV removal Patient got confused and pulled out IV and tele monitoring, states "I thought I was going home so I removed everything." Catheter fully intact. Pressure dressing applied to site. Patient reoriented.
--- NOTE | 2019-03-12 22:45 | NUR ---
IV insertion IV access obtained, via clean sterile technique by inserting 22 gauge catheter at R forearm after 1 attempt(s). IV secured properly. No trauma to site. Patient tolerated well.
[2019-03-13] MEDS: SODIUM CHLORIDE 0.9% 1,000 ML IV SCH ×2 (04:00→15:38)
[2019-03-13] MEDS: PIPERACILLIN-TAZOB 2.25GM 50 ML IV SCH ×4 (04:04→22:01)
[2019-03-13 05:24] VITALS: BP 104/75
[2019-03-13 06:30] LABS: Basophils # (auto) 0 uL; Basophils % (auto) 0.3 % (0.0-2.0); Eosinophils # (auto) 0.1 uL; Eosinophils % (auto) 0.5 % (0.0-7.0); Hematocrit 26.7 % (36.0-46.0); Hemoglobin 8.6 g/dL (12.2-16.2); Lymphocytes # (auto) 1.8 uL; Lymphocytes % (auto) 12.5 % (10.0-50.0); Mean Corpuscular Hemoglobin 28.3 pg (28.0-32.0); Mean Corpuscular Volume 88.3 fL (80.0-100.0); Monocytes # (auto) 1.4 uL; Monocytes % (auto) 9.5 % (0.0-12.0); Neutrophils % (auto) 77.2 % (37.0-80.0); Nucleated Red Blood Cells % 0.2 %; Platelet Count (auto) 260 10^3/uL (140-450); Red Blood Cells 3.03 10^6/uL (4.0-5.20); Red Cell Distribution Width 14.7 % (11.8-14.3); White Blood Cell 14.2 10^3/uL (4.4-10.8)
[2019-03-13 06:47] LABS: Albumin 1.8 g/dL (3.4-5.0); Potassium 3.9 mmol/L (3.5-5.1)
[2019-03-13] MEDS: LEVOTHYROXINE SODIUM 25 MCG TAB PO SCH (06:47)
[2019-03-13] MEDS: ACCU-CHEK COMFORT CURVE STRIP VI SCH ×4 (06:48→22:01)
[2019-03-13] MEDS: InsuLIN REG 1unit/0.01ml Soln (100units/ml) SC SCH ×4 (06:48→22:02)
[2019-03-13 06:53] LABS: Bilirubin, Total 0.5 mg/dL (0.2-1.0); Calcium 8.1 mg/dL (8.5-10.1); Total Protein 5.7 g/dL (6.4-8.2)
--- NOTE | 2019-03-13 08:00 | NUR ---
RECEIVED PT RESTING IN BED, CALL LIGHT WITHIN REACH, PT DENIES PAIN AT THIS TIME, WILL CONTINUE TO MONITOR PT.
[2019-03-13 08:25] VITALS: BP 91/70
[2019-03-13] MEDS: THIAMINE HCL 100 MG TAB PO SCH (09:23)
[2019-03-13] MEDS: PANTOPRAZOLE 40 MG TAB PO SCH (09:24)
[2019-03-13] MEDS: APIXABAN 5 MG TAB PO SCH ×2 (09:24→22:39)
[2019-03-13] MEDS: GABAPENTIN 300 MG CAP PO SCH ×2 (09:24→22:01)
[2019-03-13] MEDS: MULTIPLE VITAMINS W/ MINERALS TAB PO SCH (09:24)
[2019-03-13] MEDS: LIDOCAINE 5% TOPICAL PATCH TOP SCH (09:25)
--- NOTE | 2019-03-13 10:46 | NUR ---
assessment re:frequent visits Patient is a 73 year old female who is alert and oriented. Prior to admission patient lived home alone and functioned independently. Patient informed me she has a wheelchair, fww and a cane for home use. Patient informed me she was brought back to ER and admitted due to feeling sick and chest pain. Patient wants to return home on discharge. Patient informed me she changed her insurance due to moving to [place] with her grandchildren. Patient agreed to discharge plan home. Addendum: 03/13/19 at 1053 by Sana GUZMAN Amended: Links added.
--- NOTE | 2019-03-13 11:00 | NUR ---
DR. MANCIA AT BED SIDE TO SEE PT, DOCTOR DISCUSSED THE PLAN OF CARE WITH PT, ORDERS RECEIVED TO SEND A UA SAMPLE FOR UA AND UA CULTURE, AND UA DRUG SCREEN, AND TO ORDER AN X-RAY FOR RT RIB CAGE X-RAY.
--- NOTE | 2019-03-13 11:20 | NUR ---
Pt ambulating in the hallway with physical therapy assistance. pt back in the room.
[2019-03-13 11:40] LABS: Alcohol, Urine < 3.0 mg/dL (0-5); Amphetamine Screen, Urine NEGATIVE (NEGATIVE); Barbiturate Scree,Urine NEGATIVE (NEGATIVE); Benzodiazephine Screen, Urine NEGATIVE (NEGATIVE); Cannabinoid Screen, Urine NEGATIVE (NEGATIVE); Cocaine Screen, Urine NEGATIVE (NEGATIVE); Opiate Scree,Urine NEGATIVE (NEGATIVE); Phencyclidine Screen, Urine NEGATIVE (NEGATIVE)
--- NOTE | 2019-03-13 11:40 | NUR ---
Pt taken to radiology for x-ray.
--- NOTE | 2019-03-13 11:50 | NUR ---
Received call from tele monitor unit to report pt's heart rate increased to 150s, pt back in the room v/s 106/65, hr 65, o2 sat 92% at 2 lit n/c, pt is very sleepy, EKG done, will continue to monitor pt.
--- NOTE | 2019-03-13 12:08 | NUR ---
Nutrition Assessment Notes please see attached link for complete assessment Est. Needs BW [id number] kcal (25-30 kcal/kgBW), 51-64 gms pro (0.8-1.0 gms/kgBW r/t elev RFT CKD severe hypoalb). Will continue to monitor pertinent labs and reassess nutrient need prn Addendum: 03/13/19 at [address] Amended: Links added.
[2019-03-13 12:43] VITALS: BP 112/60
[2019-03-13] MEDS ORDERED: HYDROcodone-ACET 5/325MG TAB PO PRN (13:45)
[2019-03-13 15:42] LABS: % Iron Saturation 5.2 % (15-50)
[2019-03-13 17:16] VITALS: BP 98/58
--- NOTE | 2019-03-13 19:30 | NUR ---
Opening Shift Note Received report from Janell FENG. Assumed care of patient, awake and alert. No S/S of distress/SOB or pain. Instructed on POC and to call for assist PRN. Fall precaution measures in place, will continue to monitor for changes Q1hr and PRN.
[2019-03-13 22:00] VITALS: BP 101/69
[2019-03-13] MEDS: DOCUSATE SOD 100 MG CAP PO SCH (22:01)
[2019-03-14] MEDS: SODIUM CHLORIDE 0.9% 1,000 ML IV SCH ×2 (03:52→17:32)
[2019-03-14] MEDS: PIPERACILLIN-TAZOB 2.25GM 50 ML IV SCH ×4 (03:53→21:41)
[2019-03-14 05:00] VITALS: BP 128/57
[2019-03-14] MEDS: LEVOTHYROXINE SODIUM 25 MCG TAB PO SCH (07:07)
[2019-03-14] MEDS: InsuLIN REG 1unit/0.01ml Soln (100units/ml) SC SCH ×4 (07:07→21:42)
[2019-03-14] MEDS: ACCU-CHEK COMFORT CURVE STRIP VI SCH ×4 (07:07→21:42)
[2019-03-14 07:14] LABS: Basophils # (auto) 0.1 uL; Basophils % (auto) 0.6 % (0.0-2.0); Eosinophils # (auto) 0.1 uL; Eosinophils % (auto) 1.2 % (0.0-7.0); Hematocrit 27.4 % (36.0-46.0); Hemoglobin 7.7 g/dL (12.2-16.2); Lymphocytes # (auto) 2.3 uL; Lymphocytes % (auto) 22.8 % (10.0-50.0); Mean Corpuscular Hgb Conc. 28.1 g/dL (32.0-36.0); Mean Corpuscular Volume 99.8 fL (80.0-100.0); Monocytes % (auto) 10.4 % (0.0-12.0); Neutrophils # (auto) 6.5 uL; Nucleated Red Blood Cells % 0.1 %; Platelet Count (auto) 247 10^3/uL (140-450); Red Blood Cells 2.75 10^6/uL (4.0-5.20); Red Cell Distribution Width 16.6 % (11.8-14.3)
--- NOTE | 2019-03-14 08:00 | NUR ---
OPENING NOTE ASSUMED CARE OF PATIENT. PATIENT AWAKE AND ALERT X3. NO SIGNS OF DISTRESS OR SOB. MEDICATED FOR PAIN PER DR ORDERS. INSTRUCTED ON PLAN OF CARE AND TO CALL FOR ASSISTANCE PRN. WILL CONTINUE TO MONITOR. Hgb 7.7 Hct 27.4 Addendum: 03/14/19 at 1139 by SHENG COLUNGA RN OPENING NOTE ASSUMED CARE OF PATIENT. PATIENT AWAKE AND ALERT X3. NO SIGNS OF DISTRESS OR SOB. MEDICATED FOR PAIN PER DR ORDERS. INSTRUCTED ON PLAN OF CARE AND TO CALL FOR ASSISTANCE PRN. WILL CONTINUE TO MONITOR.
[2019-03-14 09:00] VITALS: BP 107/56
[2019-03-14] MEDS: THIAMINE HCL 100 MG TAB PO SCH (10:05)
[2019-03-14] MEDS: GABAPENTIN 300 MG CAP PO SCH ×2 (10:05→21:42)
[2019-03-14] MEDS: APIXABAN 5 MG TAB PO SCH ×2 (10:06→21:41)
[2019-03-14] MEDS: DOCUSATE SOD 100 MG CAP PO SCH ×2 (10:07→21:41)
[2019-03-14] MEDS: PANTOPRAZOLE 40 MG TAB PO SCH (10:07)
[2019-03-14] MEDS: MULTIPLE VITAMINS W/ MINERALS TAB PO SCH (10:07)
[2019-03-14] MEDS: LIDOCAINE 5% TOPICAL PATCH TOP SCH (10:07)
[2019-03-14 13:00] VITALS: BP 110/64
--- NOTE | 2019-03-14 13:15 | NUR ---
DR FLORES/ GI AT BEDSIDE DISCUSSED POC WITH PATIENT.
[2019-03-14 13:16] LABS: Urine Bacteria NONE SEEN /hpf (None Seen); Urine Blood 2+ /uL (Negative); Urine Specific Gravity 1.019 (1.001-1.035); Urine WBC 8 /hpf (0 - 5)
[2019-03-14] MEDS ORDERED: CARISOPRODOL 350 MG TAB PO PRN (13:30)
--- NOTE | 2019-03-14 13:30 | NUR ---
DR BROWN AT BEDSIDE DR AT BEDSIDE TO DISCUSS POC.
[2019-03-14 15:18] LABS: BUN/Creatinine Ratio 20.8; Potassium 4.1 mmol/L (3.5-5.1)
[2019-03-14] MEDS ORDERED: KETOROLAC TROMETH 15 mg/ml 1ML VL IV PRN (16:15)
[2019-03-14 17:00] VITALS: BP 93/64
--- NOTE | 2019-03-14 20:00 | NUR ---
open note assumed care of pt. upon entering room pt awake, alert and oriented x4. pt on 2L NC with no distress noted or expressed. pt bed locked, low and 2x rails up. pt updated on plan of care, pt has no questions at this time. pt call light in reach, encouraged to call as needed. call light in reach, will round q1hr and prn.
[2019-03-14 21:59] VITALS: BP 101/54
[2019-03-15] MEDS: PIPERACILLIN-TAZOB 2.25GM 50 ML IV SCH ×2 (04:35→10:00)
[2019-03-15 06:00] VITALS: BP 112/48
[2019-03-15] MEDS: SODIUM CHLORIDE 0.9% 1,000 ML IV SCH (06:38)
[2019-03-15] MEDS: InsuLIN REG 1unit/0.01ml Soln (100units/ml) SC SCH ×2 (06:39→11:34)
[2019-03-15] MEDS: LEVOTHYROXINE SODIUM 25 MCG TAB PO SCH (06:39)
[2019-03-15] MEDS: ACCU-CHEK COMFORT CURVE STRIP VI SCH ×2 (06:39→11:32)
[2019-03-15 09:00] VITALS: BP 123/58
[2019-03-15] MEDS: DOCUSATE SOD 100 MG CAP PO SCH (10:55)
[2019-03-15] MEDS: APIXABAN 5 MG TAB PO SCH (10:55)
[2019-03-15] MEDS: GABAPENTIN 300 MG CAP PO SCH (10:55)
[2019-03-15] MEDS: THIAMINE HCL 100 MG TAB PO SCH (10:55)
[2019-03-15] MEDS: PANTOPRAZOLE 40 MG TAB PO SCH (10:56)
[2019-03-15] MEDS: MULTIPLE VITAMINS W/ MINERALS TAB PO SCH (10:58)
[2019-03-15] MEDS: LIDOCAINE 5% TOPICAL PATCH TOP SCH (10:58)
[2019-03-15 13:00] VITALS: BP 127/55
--- NOTE | 2019-03-15 14:20 | NUR ---
Discharge instructions given as ordered to patient, and after patient's consent, sister Jackeline at bedside. Encourage to follow up with PMD as instructed. All questions and concerns addressed. Patient verbalized understanding. Medication reconciliation form completed and copy given to patient. IV removed with catheter intact, pressure dressing applied. Telemetry unit returned to [facility]. Patient taken to vehicle via wheelchair with all personal belongings, accompanied by staff and family member. No distress noted at time of departure.
--- NOTE | 2019-03-15 14:33 | NUR ---
re-assessment Per consult resume home health with [facility] for PT. Patient is moving out of state and has already changed her insurance to [facility]. Dr Whitman has been notified that [facility] cannot resume service and patient will follow up in [place]. Per Dr Whitman he will cancel consult. Addendum: 03/15/19 at 1436 by Sana Fox Amended: Links added.
== END 2019-03-15 15:52 | disposition home or self-care (01) | DRG 871 ==
LOC: EDBD 17:14 → ER 17:32 → TELE 17:33 → TELE-EAST 22:40
PROVIDERS: ADMIT Nurse Practitioner Family; ATTEND Family Medicine
DX: A41.9 Sepsis, unspecified organism (principal); E10.10 Type 1 diabetes mellitus with ketoacidosis without coma; N17.0 Acute kidney failure with tubular necrosis; E43 Unspecified severe protein-calorie malnutrition; E87.1 Hypo-osmolality and hyponatremia; I48.92 Unspecified atrial flutter; J98.11 Atelectasis; I13.0 Hypertensive heart and chronic kidney disease with heart failure and stage 1 through stage 4 chronic kidney disease, or unspecified chronic kidney disease; I50.32 Chronic diastolic (congestive) heart failure; E87.6 Hypokalemia; E86.0 Dehydration; N18.3 Chronic kidney disease, stage 3 (moderate); J44.9 Chronic obstructive pulmonary disease, unspecified; E78.5 Hyperlipidemia, unspecified; E03.9 Hypothyroidism, unspecified; K56.41 Fecal impaction; E10.22 Type 1 diabetes mellitus with diabetic chronic kidney disease; E78.00 Pure hypercholesterolemia, unspecified; I25.10 Atherosclerotic heart disease of native coronary artery without angina pectoris; I48.91 Unspecified atrial fibrillation; I70.0 Atherosclerosis of aorta; M94.0 Chondrocostal junction syndrome [Tietze]; R79.1 Abnormal coagulation profile; D75.89 Other specified diseases of blood and blood-forming organs; Z79.84 Long term (current) use of oral hypoglycemic drugs; I25.2 Old myocardial infarction; Z79.01 Long term (current) use of anticoagulants; Z79.899 Other long term (current) drug therapy; Z82.3 Family history of stroke; Z90.49 Acquired absence of other specified parts of digestive tract; Z90.710 Acquired absence of both cervix and uterus; Z68.26 Body mass index [BMI] 26.0-26.9, adult
CPT/HCPCS: 36415; 71045; 71101; 74176; 76705; 80048; 80053; 80202; 80307; 81001; 82010; 82150; 82270; 82962; 83036; 83540; 83550; 83605; 83690; 83735; 83880; 83930; 84100; 84443; 84484; 85025; 87040; 87081; 87086; 93005; 96365; 97116; 97530; G0378; J0696; J1815; J2543; J7060; P9047

== ENCOUNTER 2019-03-26 06:52 | Emergency (ER) | payer OTHER ==
[~2019-03-26] VITALS: Ht 165.1 cm; Wt 53.3 kg
[2019-03-26 08:15] LABS: Basophils # (auto) 0.1 uL; Hemoglobin 8.6 g/dL (12.2-16.2); Mean Corpuscular Hemoglobin 27.1 pg (28.0-32.0); Monocytes # (auto) 1.4 uL; Monocytes % (auto) 11.1 % (0.0-12.0); Neutrophils # (auto) 8.9 uL
[2019-03-26 08:17] LABS: Basophils % (auto) 0.7 % (0.0-2.0); Eosinophils # (auto) 0.1 uL; Eosinophils % (auto) 0.5 % (0.0-7.0); Lymphocytes # (auto) 2.3 uL; Mean Corpuscular Hgb Conc. 31.9 g/dL (32.0-36.0); Mean Corpuscular Volume 84.9 fL (80.0-100.0); Neutrophils % (auto) 69.7 % (37.0-80.0); Red Blood Cells 3.18 10^6/uL (4.0-5.20); Red Cell Distribution Width 14.9 % (11.8-14.3); White Blood Cell 12.8 10^3/uL (4.4-10.8)
[2019-03-26 08:19] LABS: Platelet Count (auto) 540 10^3/uL (140-450)
[2019-03-26 08:34] LABS: Albumin 2.3 g/dL (3.4-5.0); Anion Gap 9 (5-15); Blood Urea Nitrogen 23 mg/dL (7-18); Calcium 9.1 mg/dL (8.5-10.1); Carbon Dioxide 23 mmol/L (21-32); Chloride 102 mmol/L (98-107); Glucose 180 mg/dL (74-106); Potassium 3.8 mmol/L (3.5-5.1); Sodium 134 mmol/L (136-145)
[2019-03-26 08:36] LABS: Alanine Aminotransferase 14 U/L (13-56); Aspartate Aminotransferase 20 U/L (15-37); BUN/Creatinine Ratio 15.4; GFR African American 44 mL/min; GFR Non-African American 37 mL/min
[2019-03-26 08:41] LABS: Alkaline Phosphatase 135 U/L (45-117); Bilirubin, Total 0.3 mg/dL (0.2-1.0)
[2019-03-26 09:30] VITALS: BP 95/59
== END 2019-03-26 12:54 | disposition home or self-care (01) ==
LOC: EDBD 06:52 → EDUNIT# 06:52 → ER 06:57
DX: D64.9 Anemia, unspecified (principal); E46 Unspecified protein-calorie malnutrition; I48.91 Unspecified atrial fibrillation; J44.9 Chronic obstructive pulmonary disease, unspecified; E11.9 Type 2 diabetes mellitus without complications; E78.5 Hyperlipidemia, unspecified; I10 Essential (primary) hypertension; I25.2 Old myocardial infarction; Z68.1 Body mass index [BMI] 19.9 or less, adult; Z90.49 Acquired absence of other specified parts of digestive tract; Z90.710 Acquired absence of both cervix and uterus; Z79.82 Long term (current) use of aspirin; Z79.84 Long term (current) use of oral hypoglycemic drugs; Z79.899 Other long term (current) drug therapy; Z86.73 Personal history of transient ischemic attack (TIA), and cerebral infarction without residual deficits
CPT/HCPCS: 36415; 70450; 71045; 73562; 80053; 83036; 84484; 85025; 93005

== ENCOUNTER 2019-06-13 13:24 | Inpatient (IN) | payer BC, OTHER ==
[~2019-06-13] VITALS: Ht 162.6 cm; Wt 63.8 kg
[2019-06-13] MEDS ORDERED: SODIUM CHLORIDE 0.9% 1,000 ML IVB ONE (13:55)
[2019-06-13] MEDS ORDERED: TETANUS-DIPTH-ACEL PERTUSSIS 0.5ML SYRG IM ONE (14:00)
[2019-06-13 14:16] LABS: Basophils # (auto) 0.1 uL; Basophils % (auto) 0.4 % (0.0-2.0); Eosinophils # (auto) 0 uL; Lymphocytes # (auto) 2.2 uL
[2019-06-13 14:18] LABS: Hemoglobin 9.8 g/dL (12.2-16.2); Lymphocytes % (auto) 11.1 % (10.0-50.0); Mean Corpuscular Hemoglobin 24.1 pg (28.0-32.0); Mean Corpuscular Hgb Conc. 31.7 g/dL (32.0-36.0); Mean Corpuscular Volume 75.9 fL (80.0-100.0); Monocytes # (auto) 2.3 uL; Monocytes % (auto) 11.9 % (0.0-12.0); Neutrophils # (auto) 14.8 uL; Neutrophils % (auto) 76.6 % (37.0-80.0); Platelet Count (auto) 359 10^3/uL (140-450); Red Blood Cells 4.08 10^6/uL (4.0-5.20); Red Cell Distribution Width 16.3 % (11.8-14.3); White Blood Cell 19.4 10^3/uL (4.4-10.8)
[2019-06-13 14:34] LABS: Albumin 2.4 g/dL (3.4-5.0); Anion Gap 11 (5-15); Blood Urea Nitrogen 20 mg/dL (7-18); Calcium 8.3 mg/dL (8.5-10.1); Carbon Dioxide 22 mmol/L (21-32); Chloride 100 mmol/L (98-107); Glucose 342 mg/dL (74-106); Potassium 3.7 mmol/L (3.5-5.1); Sodium 133 mmol/L (136-145)
[2019-06-13 14:39] LABS: Alanine Aminotransferase 8 U/L (13-56); Alkaline Phosphatase 147 U/L (45-117); Aspartate Aminotransferase 11 U/L (15-37); BUN/Creatinine Ratio 13.1; Bilirubin, Total 0.7 mg/dL (0.2-1.0); GFR African American 43 mL/min; GFR Non-African American 36 mL/min
[2019-06-13 16:02] LABS: Urine Bacteria FEW /hpf (None Seen); Urine Blood TRACE /uL (Negative); Urine Specific Gravity 1.013 (1.001-1.035); Urine WBC 395 /hpf (0 - 5)
[2019-06-13] MEDS ORDERED: InsuLIN REG 1unit/0.01ml Soln (100units/ml) SC ONE (16:15)
[2019-06-13] MEDS ORDERED: ACETAMINOPHEN 500 MG TAB PO PRN (19:30)
[2019-06-13] MEDS ORDERED: NITROGLYCERIN 0.4 MG SL TAB SL PRN (19:30)
[2019-06-13] MEDS ORDERED: ONDANSETRON HCL 4 MG/2 ML VIAL IV PRN (19:30)
[2019-06-13] MEDS ORDERED: MORPHINE SULF INJ 2 MG/ML SYRINGE 1ML IV PRN ×2 (19:30)
[2019-06-13] MEDS ORDERED: HYDROcodone-ACET 5/325MG TAB PO PRN (19:30)
[2019-06-13] MEDS ORDERED: DEXTROSE (50%) 50ML SYRG IV PRN (19:30)
--- NOTE | 2019-06-13 21:55 | NUR ---
Telemetry admit from [facility] admitted to Telemetry unit. Patient oriented to Yolanda ValeRN primary RN, unit, room, bed, and unit policies regarding patient care and visiting hours. Patient now on continuous telemetry monitoring, tele box #50 and telemetry reading on arrival to unit is A-fib. AAOx4, on bedrest, fall risk precautions in place bed alarm on. On room air. Skin tear to left forearm noted, photos taken, wound consult placed, optifoam and kerlix dressing applied, CDI, patient tolerated well. Patient weighed by bed scale and encouraged to call if they need something. All questions and concerns addressed, patient verbalized understanding. Bed in lowest locked position, side rails up x2, call light within reach. Will continue to monitor every hour and as needed.
[2019-06-13] MEDS ORDERED: INFLUENZA QUAD 2019-2020 0.5ml SYRG IM ONE (22:30)
[2019-06-13] MEDS ORDERED: PNEUMOCOCCAL VACC POLYS 25 MCG/0.5 ML VIAL IM ONE (22:30)
[2019-06-13] MEDS: GABAPENTIN 300 MG CAP PO SCH (22:46)
[2019-06-13] MEDS: DOCUSATE SOD 100 MG CAP PO SCH (22:46)
[2019-06-13] MEDS: SODIUM CHLORIDE 0.9% 1,000 ML IV SCH (22:46)
[2019-06-13] MEDS: APIXABAN 2.5 MG TAB PO SCH (22:46)
[2019-06-13] MEDS: ACCU-CHEK COMFORT CURVE STRIP VI SCH (22:46)
[2019-06-13] MEDS: InsuLIN REG 1unit/0.01ml Soln (100units/ml) SC SCH (23:30)
[2019-06-13 23:34] VITALS: BP 117/69
[2019-06-14] MEDS: SODIUM CHLORIDE 0.9% 1,000 ML IV SCH ×3 (03:24→12:54)
[2019-06-14 05:07] VITALS: BP 127/72
[2019-06-14 05:47] LABS: Basophils # (auto) 0.1 uL; Basophils % (auto) 0.5 % (0.0-2.0); Mean Corpuscular Hgb Conc. 31.7 g/dL (32.0-36.0)
[2019-06-14 05:51] LABS: Eosinophils # (auto) 0 uL; Eosinophils % (auto) 0.2 % (0.0-7.0); Hematocrit 25.9 % (36.0-46.0); Hemoglobin 8.2 g/dL (12.2-16.2); Lymphocytes # (auto) 2.4 uL; Lymphocytes % (auto) 19.6 % (10.0-50.0); Mean Corpuscular Hemoglobin 24.1 pg (28.0-32.0); Mean Corpuscular Volume 75.9 fL (80.0-100.0); Monocytes # (auto) 1.5 uL; Monocytes % (auto) 12.1 % (0.0-12.0); Neutrophils # (auto) 8.3 uL; Neutrophils % (auto) 67.6 % (37.0-80.0); Platelet Count (auto) 283 10^3/uL (140-450); Red Blood Cells 3.41 10^6/uL (4.0-5.20); Red Cell Distribution Width 16.4 % (11.8-14.3); White Blood Cell 12.2 10^3/uL (4.4-10.8)
[2019-06-14 06:07] LABS: % Iron Saturation 4.1 % (15-50); Calcium 8.1 mg/dL (8.5-10.1)
[2019-06-14 06:21] LABS: BUN/Creatinine Ratio 17.1
[2019-06-14] MEDS: LEVOTHYROXINE SODIUM 25 MCG TAB PO SCH (06:51)
[2019-06-14] MEDS: InsuLIN REG 1unit/0.01ml Soln (100units/ml) SC SCH ×4 (06:52→23:24)
[2019-06-14] MEDS: ACCU-CHEK COMFORT CURVE STRIP VI SCH ×4 (06:52→23:19)
[2019-06-14 09:00] VITALS: BP 142/75
[2019-06-14] MEDS: cefTRIAXone 1GM/50ML D5W 50 ML IV SCH (09:28)
[2019-06-14] MEDS: DOCUSATE SOD 100 MG CAP PO SCH ×2 (09:28→23:12)
[2019-06-14] MEDS: APIXABAN 2.5 MG TAB PO SCH ×2 (09:28→23:12)
[2019-06-14] MEDS: GABAPENTIN 300 MG CAP PO SCH ×2 (09:28→23:13)
[2019-06-14] MEDS: ATORVASTATIN 20 MG TAB PO SCH (09:29)
[2019-06-14] MEDS: LISINOPRIL 20 MG TAB PO SCH (09:29)
--- NOTE | 2019-06-14 10:00 | NUR ---
WOUND CARE NOTE: IN TO SEE PATIENT AT THIS TIME PER WOUND CARE CONSULT REQUEST. PATIENT NOTED TO HAVE WOUNDS UPON ADMIT. WOUND PHOTOS TAKEN AT THAT TIME BY BEDSIDE NURSE FOR REFERENCE. [facility]IS [facility] SEPSIS. CURRENT [place]SEMARY SCORE IS 16. PATIENT CAN SELF TURN/REPOSITION SELF. PATIENT NOTED TO HAVE 2 SMALL SKIN TEARS TO THE RIGHT FOREARM AFTER SUFFERING FALL AT HOME. WOUNDS ARE PARTIAL THICKNESS, WITH PARTIAL REAPPROXIMATION WITH SKIN FLAP. APPLIED THERAHONEY, OPTIFOAM GENTLE DRESSING. NO OTHER SKIN INTEGRITY ISSUES/WOUNDS NOTED. RECOMMEND: SKIN/WOUND CARE PLAN, BID/PRN APPLICATION WITH MOISTURE BARRIER CREAM, OPTIFOAM GENTLE SACRAL DRESSING PREVENTATIVE, Q 3 DAY/PRN DRESSING CHANGE WITH OPTIFOAM GENTLE AND THERAHONEY, DIETARY CONSULT, CONTINUED MONITORING BY WOUND CARE TEAM. Addendum: 06/14/19 at 1153 by Sheila Martin RN Amended: Links added.
[2019-06-14] MEDS ORDERED: POTASSIUM CHL 20 Meq TABLET PO ONE (12:45)
[2019-06-14] MEDS ORDERED: FERROUS SULFATE 325 MG TAB PO ONE (12:45)
[2019-06-14] MEDS ORDERED: LISINOPRIL 20 MG TAB PO ONE (12:45)
[2019-06-14 13:00] VITALS: BP 147/69
[2019-06-14 17:38] VITALS: BP 132/77
[2019-06-14] MEDS ORDERED: FERROUS SULFATE 325 MG TAB PO SCH (18:00)
[2019-06-14 20:00] VITALS: BP 131/59
[2019-06-14 21:31] VITALS: BP 131/59
--- NOTE | 2019-06-14 22:00 | NUR ---
IV Removal IV 20g in left hand discontinued with clean sterile technique, catheter fully intact. Pressure dressing applied to site. Patient tolerated well.
[2019-06-14] MEDS: METOPROLOL TARTRATE 25 MG TAB PO SCH (23:12)
[2019-06-15] MEDS: SODIUM CHLORIDE 0.9% 1,000 ML IV SCH (02:05)
--- NOTE | 2019-06-15 04:30 | NUR ---
IV insertion IV access obtained, via clean sterile technique by inserting 22 gauge catheter at Right Hand after 2 attempts. IV secured properly. No trauma to site. Patient tolerated well.
[2019-06-15 05:07] VITALS: BP 138/79
[2019-06-15 05:47] LABS: Basophils # (auto) 0.1 uL; Red Blood Cells 3.29 10^6/uL (4.0-5.20)
[2019-06-15 05:49] LABS: Basophils % (auto) 0.5 % (0.0-2.0); Eosinophils # (auto) 0 uL; Eosinophils % (auto) 0.3 % (0.0-7.0); Hematocrit 25.1 % (36.0-46.0); Hemoglobin 7.9 g/dL (12.2-16.2); Lymphocytes # (auto) 2.2 uL; Lymphocytes % (auto) 16.3 % (10.0-50.0); Mean Corpuscular Hemoglobin 23.9 pg (28.0-32.0); Mean Corpuscular Hgb Conc. 31.4 g/dL (32.0-36.0); Mean Corpuscular Volume 76.1 fL (80.0-100.0); Monocytes % (auto) 7.6 % (0.0-12.0); Neutrophils # (auto) 10.2 uL; Neutrophils % (auto) 75.3 % (37.0-80.0); Platelet Count (auto) 288 10^3/uL (140-450); Red Cell Distribution Width 16.6 % (11.8-14.3); White Blood Cell 13.5 10^3/uL (4.4-10.8)
[2019-06-15 06:25] LABS: BUN/Creatinine Ratio 18.6; Calcium 7.9 mg/dL (8.5-10.1); Magnesium 1.8 mg/dL (1.6-2.6); Potassium 3.3 mmol/L (3.5-5.1)
[2019-06-15] MEDS: ACCU-CHEK COMFORT CURVE STRIP VI SCH ×4 (06:41→22:11)
[2019-06-15] MEDS: LEVOTHYROXINE SODIUM 25 MCG TAB PO SCH (06:48)
[2019-06-15] MEDS: InsuLIN REG 1unit/0.01ml Soln (100units/ml) SC SCH ×4 (06:49→22:00)
[2019-06-15 09:00] VITALS: BP 130/61
[2019-06-15] MEDS ORDERED: SODIUM FERR GLUC 62.5MG/5ML 125 MG in SODIUM CHL 0.9% 100 ML IV ONE (09:15)
[2019-06-15] MEDS: cefTRIAXone 1GM/50ML D5W 50 ML IV SCH (09:47)
[2019-06-15] MEDS: ATORVASTATIN 20 MG TAB PO SCH (09:47)
[2019-06-15] MEDS: LISINOPRIL 20 MG TAB PO SCH (09:49)
[2019-06-15] MEDS: METOPROLOL TARTRATE 25 MG TAB PO SCH ×2 (09:49→22:01)
[2019-06-15] MEDS: GABAPENTIN 300 MG CAP PO SCH ×2 (09:49→22:00)
[2019-06-15] MEDS: DOCUSATE SOD 100 MG CAP PO SCH ×2 (09:50→22:12)
[2019-06-15] MEDS: APIXABAN 2.5 MG TAB PO SCH ×2 (09:50→22:01)
[2019-06-15] MEDS ORDERED: POTASSIUM CHL 20 Meq TABLET PO SCH (10:00)
--- NOTE | 2019-06-15 11:47 | NUR ---
NUTRITION CONSULT/ASSESSMENT NOTES Please refer to link notes of nutrition screen form filed under the intervention section of the plan of care for further details. Est. Needs: 1500 kcal to 1800 kcal (25-30 kcal/kgBW), 60 gms to 72 gms pro (1.0-1.2 gms/kgBW). Will continue to monitor pertinent labs and reassess nutrient need prn Thank you for this consult. Addendum: 06/15/19 at [address] Amended: Links added.
--- NOTE | 2019-06-15 11:56 | NUR ---
RECEIVED CALL FROM TELE MONITORS, TECH REPORTS PT HR DROPPED DOWN TO THE 30'S, THEN WENT RIGHT BACK UP. ASSESSED PT, PT RESTING COMFORTABLY IN BED, NO DISTRESS NOTED. PT REPORTS WANTING OTTER POPS. HR [address] BPM. CALLED PBX AND PAGED DR OTOOLE. AWAITING CALL BACK.
--- NOTE | 2019-06-15 12:01 | NUR ---
TELE CALLED BACK AND REPORTS PT GOING INTO SECOND DEGREE TYPE 2 HEART BLOCK WHEN HR DROPS. ALREADY PAGED DR OTOOLE, AWAITING CALL BACK, WILL DO ECG.
--- NOTE | 2019-06-15 12:05 | NUR ---
DR OTOOLE CALLED BACK NEW ORDERS FOR ECG AND TO PLACE IN CHART, MD REPORTS SHE WILL COME BACK TO LOOK AT IT.
--- NOTE | 2019-06-15 12:17 | NUR ---
STAT ECG DONE, RESULTS SHOW AFIB, HR 80 BPM. PT RESTING IN BED NO DISTRESS NOTED. PT REPORTS N SYMPTOMS. ECG PLACED IN CHART.
[2019-06-15 13:00] VITALS: BP 121/90
--- NOTE | 2019-06-15 14:24 | NUR ---
PT HAS VERY SMALL BM, SENT TO LAB, CALLED LAB AND REPORTED SAMPLE VERY SMALL BUT ALL THAT WAS AVAILABLE. ASKED LAB TO CALL BACK IF NOT ENOUGH STOOL AND ANOTHER SAMPLE IS NEEDED.
[2019-06-15 17:15] VITALS: BP 134/66
--- NOTE | 2019-06-15 17:42 | NUR ---
DR PEREIRA SAW PATIENT AND EVALUATED ECG STRIPS. REPORTS THERE WAS NO BLOCK, PT WENT INTO SR FOR A FEW BEATS. PT IS CLEARED FROM A CARDIO PERSPECTIVE AND FOR PT TO FOLLOW UP WITH ANTHROPOLOGY PROFESSOR.
--- NOTE | 2019-06-15 17:44 | NUR ---
assessment re:frequent visits Patient is a 73 year old female who is alert and oriented. Prior to admission patient lived home alone and functioned independently. Patient informed me she has a wheelchair, fww and a cane for home use. Patient informed me she was admitted due to feeling weak. Patient wants to return home on discharge. Patient informed me she has not moved to [place] with her grandchildren yet because she was waiting for her mobile home to sell. Patient may benefit from home health PT on discharge. Patient agreed to discharge plan home. Addendum: 06/15/19 at 1746 by Sana GUZMAN Amended: Links added.
--- NOTE | 2019-06-15 17:45 | NUR ---
PT POSITIVE FOR STOOL OCCULT, CALLED PBX AND PAGED DR JOHNSON. AWAITING CALL BACK.
--- NOTE | 2019-06-15 18:14 | NUR ---
DR OTOOLE CALLED BACK. REPORTED POSITIVE STOOL OCCULT. AWARE, NEW ORDERS FOR GI CONSULT.
[2019-06-15 20:25] VITALS: BP 139/83
[2019-06-15 21:00] VITALS: BP 139/83
[2019-06-16 04:30] VITALS: BP 134/73
[2019-06-16 05:45] LABS: Basophils # (auto) 0 uL; Basophils % (auto) 0.4 % (0.0-2.0); Eosinophils # (auto) 0.2 uL; Eosinophils % (auto) 1.7 % (0.0-7.0); Hematocrit 25.6 % (36.0-46.0); Hemoglobin 8.2 g/dL (12.2-16.2); Lymphocytes # (auto) 2.3 uL; Mean Corpuscular Hemoglobin 24.2 pg (28.0-32.0); Mean Corpuscular Volume 75.7 fL (80.0-100.0); Monocytes # (auto) 0.8 uL; Monocytes % (auto) 8.9 % (0.0-12.0); Neutrophils # (auto) 5.9 uL; Nucleated Red Blood Cells % 0.1 %; Platelet Count (auto) 309 10^3/uL (140-450); Red Blood Cells 3.38 10^6/uL (4.0-5.20); Red Cell Distribution Width 16.4 % (11.8-14.3); White Blood Cell 9.2 10^3/uL (4.4-10.8)
[2019-06-16 06:08] LABS: Calcium 8.2 mg/dL (8.5-10.1); Potassium 3.6 mmol/L (3.5-5.1)
[2019-06-16 06:14] LABS: BUN/Creatinine Ratio 17.9
[2019-06-16] MEDS: LEVOTHYROXINE SODIUM 25 MCG TAB PO SCH (06:20)
[2019-06-16] MEDS: InsuLIN REG 1unit/0.01ml Soln (100units/ml) SC SCH ×4 (06:22→22:22)
[2019-06-16] MEDS: ACCU-CHEK COMFORT CURVE STRIP VI SCH ×4 (07:00→22:21)
--- NOTE | 2019-06-16 07:35 | NUR ---
Opening Shift Note Assumed care of patient, awake and alert, sitting up in bed eating breakfast. No S/S of distress/SOB or pain. Instructed on POC and to call for assist PRN, call light within reach and bed in locked and lowest position. Will continue to monitor for changes Q1hr and PRN.
[2019-06-16 08:00] VITALS: BP 151/72
[2019-06-16] MEDS: FERROUS SULFATE 325 MG TAB PO SCH ×2 (08:31→17:29)
[2019-06-16] MEDS: cefTRIAXone 1GM/50ML D5W 50 ML IV SCH (08:32)
[2019-06-16 09:00] VITALS: BP 151/72
[2019-06-16] MEDS: DOCUSATE SOD 100 MG CAP PO SCH ×2 (09:35→22:17)
[2019-06-16] MEDS: APIXABAN 2.5 MG TAB PO SCH ×2 (09:35→22:18)
[2019-06-16] MEDS: ATORVASTATIN 20 MG TAB PO SCH (09:36)
[2019-06-16] MEDS: GABAPENTIN 300 MG CAP PO SCH ×2 (09:36→22:18)
[2019-06-16] MEDS: LISINOPRIL 20 MG TAB PO SCH (09:37)
[2019-06-16] MEDS: METOPROLOL TARTRATE 25 MG TAB PO SCH ×2 (09:39→22:20)
--- NOTE | 2019-06-16 10:34 | NUR ---
Dr. Mcelroy on unit regarding patient
--- NOTE | 2019-06-16 12:06 | NUR ---
Dr. Roblero bedside with patient.
[2019-06-16 13:00] VITALS: BP 127/66
[2019-06-16 17:00] VITALS: BP 152/84
--- NOTE | 2019-06-16 19:30 | NUR ---
Opening Shift Note Assumed care of patient, awake and alert. No S/S of distress/SOB or pain. Instructed on POC and to call for assist PRN. Bed in lowest locked position, call light within reach, side rails up x2, fall precautions in place. Will continue to monitor for changes Q1hr and PRN.
[2019-06-16 22:09] VITALS: BP 136/67
--- NOTE | 2019-06-17 04:45 | NUR ---
IV removal IV accidently removed by patient, catheter fully intact. Pressure dressing applied to site. Patient tolerated well. Signed: 06/17/19 at 0515 by PARI BEASLEY <Co-Signature Required> Co-Signed: 06/17/19 at 0515 by LUNA GOODWIN OCA, RN
--- NOTE | 2019-06-17 04:59 | NUR ---
IV insertion IV access obtained, via clean sterile technique by inserting 22 gauge catheter at right AC after 1 attempt. IV secured properly. No trauma to site. Patient tolerated well. Signed: 06/17/19 at 0516 by PARI BEASLEY <Co-Signature Required> Co-Signed: 06/17/19 at 0516 by LUNA GOODWIN OCA, RN
[2019-06-17 05:14] VITALS: BP 132/73
[2019-06-17 05:28] LABS: Basophils # (auto) 0 uL; Eosinophils # (auto) 0.2 uL; Hemoglobin 8.1 g/dL (12.2-16.2); Lymphocytes # (auto) 2.4 uL; Lymphocytes % (auto) 30.5 % (10.0-50.0); Monocytes # (auto) 0.8 uL; Neutrophils # (auto) 4.5 uL
[2019-06-17 05:31] LABS: Basophils % (auto) 0.4 % (0.0-2.0); Hematocrit 25.4 % (36.0-46.0); Mean Corpuscular Hemoglobin 23.9 pg (28.0-32.0); Mean Corpuscular Hgb Conc. 31.7 g/dL (32.0-36.0); Mean Corpuscular Volume 75.5 fL (80.0-100.0); Monocytes % (auto) 9.8 % (0.0-12.0); Neutrophils % (auto) 57.3 % (37.0-80.0); Platelet Count (auto) 350 10^3/uL (140-450); Red Blood Cells 3.37 10^6/uL (4.0-5.20); Red Cell Distribution Width 16.7 % (11.8-14.3); White Blood Cell 7.8 10^3/uL (4.4-10.8)
[2019-06-17 05:47] LABS: Calcium 8.3 mg/dL (8.5-10.1); Magnesium 1.9 mg/dL (1.6-2.6); Potassium 3.4 mmol/L (3.5-5.1)
[2019-06-17 05:50] LABS: BUN/Creatinine Ratio 18.8; Bilirubin, Total 0.2 mg/dL (0.2-1.0); Phosphorus 3.3 mg/dL (2.5-4.90); Total Protein 6.1 g/dL (6.4-8.2)
[2019-06-17] MEDS: LEVOTHYROXINE SODIUM 25 MCG TAB PO SCH (06:53)
[2019-06-17] MEDS: ACCU-CHEK COMFORT CURVE STRIP VI SCH ×4 (06:55→21:51)
[2019-06-17] MEDS: InsuLIN REG 1unit/0.01ml Soln (100units/ml) SC SCH ×4 (06:55→21:51)
--- NOTE | 2019-06-17 07:15 | NUR ---
Opening Shift Note Assumed care of patient, awake and alert sitting up in bed. No S/S of distress/SOB or pain. Instructed on POC and to call for assist PRN, bed in locked and lowest position and call light within reach. Will continue to monitor for changes Q1hr and PRN.
[2019-06-17 08:00] VITALS: BP 128/66
[2019-06-17] MEDS: FERROUS SULFATE 325 MG TAB PO SCH ×2 (08:03→17:54)
[2019-06-17] MEDS ORDERED: POTASSIUM CHL 20 Meq TABLET PO ONE (08:45)
[2019-06-17] MEDS: DOCUSATE SOD 100 MG CAP PO SCH ×2 (08:57→21:50)
[2019-06-17] MEDS: cefTRIAXone 1GM/50ML D5W 50 ML IV SCH (08:57)
[2019-06-17] MEDS: ATORVASTATIN 20 MG TAB PO SCH (08:58)
[2019-06-17] MEDS: APIXABAN 2.5 MG TAB PO SCH ×2 (08:58→21:50)
[2019-06-17] MEDS: GABAPENTIN 300 MG CAP PO SCH ×2 (08:58→21:51)
[2019-06-17] MEDS: LISINOPRIL 20 MG TAB PO SCH (08:59)
[2019-06-17 09:00] VITALS: BP 128/66
[2019-06-17] MEDS: METOPROLOL TARTRATE 25 MG TAB PO SCH ×2 (09:00→21:50)
[2019-06-17] MEDS: SODIUM CHLORIDE 0.9% 1,000 ML IV SCH (09:09)
--- NOTE | 2019-06-17 11:00 | NUR ---
Mary from PT worked with patient today and is recommending SNF placement. Contacted Dr. Mcelroy and informed him of recommendation.
[2019-06-17] MEDS ORDERED: METF-370 PO (11:26)
[2019-06-17] MEDS ORDERED: POTA-220 PO (11:26)
[2019-06-17] MEDS ORDERED: ATOR20TA PO (11:26)
[2019-06-17] MEDS ORDERED: LISI-646 PO (11:26)
[2019-06-17] MEDS ORDERED: APIX5TAB PO (11:26)
[2019-06-17] MEDS ORDERED: OXYB5TAB61 PO (11:26)
[2019-06-17] MEDS ORDERED: LEV25T PO (11:26)
[2019-06-17] MEDS ORDERED: GABA300C10 PO (11:26)
[2019-06-17] MEDS ORDERED: METO25TA5 PO (11:26)
[2019-06-17] MEDS: POTASSIUM CHL 20 Meq TABLET PO SCH (12:29)
--- NOTE | 2019-06-17 12:35 | NUR ---
Dr. Mcelroy signed transfer paperwork for SNF. Paperwork in patient file.
[2019-06-17 12:39] VITALS: BP 113/81
--- NOTE | 2019-06-17 12:44 | NUR ---
DELFINA Mcdermott in , she is working on SNF placement for patient.
[2019-06-17] MEDS ORDERED: CEPH-37 PO (14:30)
--- NOTE | 2019-06-17 14:53 | NUR ---
Discharge planning per SS consult, received a call from nurse Malik who advised that patient may need PT, eval was pending, and upon her calling me back she advised that patient has orders for dc to SNF as recommended by PT. Advised that I would work on it Tuesday upon return as member is out of area for her Health Plan and may need to repatriate back into network. Nurse Malik verbalized understanding.
[2019-06-17 16:32] VITALS: BP 139/71
[2019-06-17 22:00] VITALS: BP 136/59
[2019-06-18 05:00] VITALS: BP 139/76
[2019-06-18] MEDS: SODIUM CHLORIDE 0.9% 1,000 ML IV SCH ×2 (05:56→18:05)
[2019-06-18] MEDS: LEVOTHYROXINE SODIUM 25 MCG TAB PO SCH (06:52)
[2019-06-18] MEDS: ACCU-CHEK COMFORT CURVE STRIP VI SCH ×4 (06:52→21:57)
[2019-06-18] MEDS: InsuLIN REG 1unit/0.01ml Soln (100units/ml) SC SCH ×4 (06:54→21:57)
--- NOTE | 2019-06-18 08:00 | NUR ---
Morning note patient resting in bed with even and unlabored respirations, no distress noted. Instructed patient on POC, fall precautions and to call for assistance. Patient verbalized understanding. Fall precautions in place with bed in lowest locked position and call light within reach. BSC at bedside. Will continue to monitor q1hr & PRN.
[2019-06-18 08:54] VITALS: BP 151/79
[2019-06-18] MEDS: APIXABAN 2.5 MG TAB PO SCH ×2 (08:56→21:55)
[2019-06-18] MEDS: DOCUSATE SOD 100 MG CAP PO SCH ×2 (08:57→21:55)
[2019-06-18] MEDS: ATORVASTATIN 20 MG TAB PO SCH (08:57)
[2019-06-18] MEDS: GABAPENTIN 300 MG CAP PO SCH ×2 (09:00→21:56)
[2019-06-18] MEDS: FERROUS SULFATE 325 MG TAB PO SCH ×2 (09:00→16:52)
[2019-06-18] MEDS: LISINOPRIL 20 MG TAB PO SCH (09:01)
[2019-06-18] MEDS: METOPROLOL TARTRATE 25 MG TAB PO SCH ×2 (09:01→21:56)
[2019-06-18] MEDS: POTASSIUM CHL 20 Meq TABLET PO SCH (09:03)
[2019-06-18] MEDS: cefTRIAXone 1GM/50ML D5W 50 ML IV SCH (09:04)
--- NOTE | 2019-06-18 09:25 | NUR ---
Patient ambulating with physical biochemist FWW used as assistive device.
[2019-06-18 13:00] VITALS: BP 147/76
--- NOTE | 2019-06-18 14:31 | NUR ---
Patient resting in bed with even and unlabored respirations, no distress noted. Fall precautions in place with call light within reach. Visitor at bedside.
--- NOTE | 2019-06-18 14:37 | NUR ---
Called [facility] to receive update on transfer order Called [facility]. Voicemail left.
--- NOTE | 2019-06-18 16:07 | NUR ---
SNF informed [facility] that [facility] ext [phone], SS working on placing pt in snf.
--- NOTE | 2019-06-18 16:30 | NUR ---
RE: SNF transfer/SW Spoke with ZARIA Mcdermott. Received update on SNF transfer.
[2019-06-18 16:52] VITALS: BP 143/64
--- NOTE | 2019-06-18 18:44 | NUR ---
Closing note patient resting in bed with even and unlabored respirations, no distress noted. Fall precautions in place with call light within reach.
--- NOTE | 2019-06-18 19:30 | NUR ---
Care endorsed to PING Kay.
[2019-06-18 22:00] VITALS: BP 134/83
--- NOTE | 2019-06-19 04:30 | NUR ---
Wound Care to right forearm performed per MD order.
[2019-06-19 05:00] VITALS: BP 140/86
[2019-06-19 06:25] LABS: Basophils # (auto) 0.1 uL; Hemoglobin 8.5 g/dL (12.2-16.2); Lymphocytes # (auto) 3.1 uL; Monocytes # (auto) 0.7 uL; White Blood Cell 8.8 10^3/uL (4.4-10.8)
[2019-06-19] MEDS: LEVOTHYROXINE SODIUM 25 MCG TAB PO SCH (06:30)
[2019-06-19] MEDS: ACCU-CHEK COMFORT CURVE STRIP VI SCH ×4 (06:30→21:35)
[2019-06-19] MEDS: InsuLIN REG 1unit/0.01ml Soln (100units/ml) SC SCH ×4 (06:30→21:35)
[2019-06-19 06:37] LABS: Basophils % (auto) 0.8 % (0.0-2.0); Eosinophils # (auto) 0.2 uL; Eosinophils % (auto) 1.8 % (0.0-7.0); Hematocrit 26.1 % (36.0-46.0); Mean Corpuscular Hemoglobin 24.5 pg (28.0-32.0); Mean Corpuscular Hgb Conc. 32.4 g/dL (32.0-36.0); Mean Corpuscular Volume 75.7 fL (80.0-100.0); Monocytes % (auto) 7.8 % (0.0-12.0); Neutrophils # (auto) 4.8 uL; Neutrophils % (auto) 54.6 % (37.0-80.0); Platelet Count (auto) 404 10^3/uL (140-450); Red Blood Cells 3.45 10^6/uL (4.0-5.20); Red Cell Distribution Width 16.6 % (11.8-14.3)
[2019-06-19 06:42] LABS: Potassium 4.6 mmol/L (3.5-5.1)
[2019-06-19 06:47] LABS: BUN/Creatinine Ratio 13.7; Calcium 8.4 mg/dL (8.5-10.1)
[2019-06-19 09:00] VITALS: BP 127/71
--- NOTE | 2019-06-19 09:04 | NUR ---
SNF faxed snf packet to [facility] [phone] after talking to Sepideh at [facility]. She is to call me back after they review chart
--- NOTE | 2019-06-19 09:59 | NUR ---
Patient ambulating with PT assistant curator
--- NOTE | 2019-06-19 09:59 | NUR ---
was at bedside - Dr. Valiente
--- NOTE | 2019-06-19 10:10 | NUR ---
Orders received from Dr. Valiente Orders received and read back to verify.
[2019-06-19] MEDS: GABAPENTIN 300 MG CAP PO SCH ×2 (10:19→21:34)
[2019-06-19] MEDS: FERROUS SULFATE 325 MG TAB PO SCH ×2 (10:19→17:33)
[2019-06-19] MEDS: ATORVASTATIN 20 MG TAB PO SCH (10:19)
[2019-06-19] MEDS: APIXABAN 2.5 MG TAB PO SCH ×2 (10:20→21:34)
[2019-06-19] MEDS: POTASSIUM CHL 20 Meq TABLET PO SCH (10:21)
[2019-06-19] MEDS: LISINOPRIL 20 MG TAB PO SCH (10:22)
[2019-06-19] MEDS: METOPROLOL TARTRATE 25 MG TAB PO SCH ×2 (10:23→21:34)
[2019-06-19] MEDS: DOCUSATE SOD 100 MG CAP PO SCH ×2 (10:39→21:33)
--- NOTE | 2019-06-19 11:38 | NUR ---
IV discontinued IV to the RAC discontinued due to tenderness reported by the patient. IV removed with clean technique, catheter intact. Dressing and pressure applied. Patient tolerated well, no trauma to site.
[2019-06-19 13:00] VITALS: BP 149/82
[2019-06-19 16:40] VITALS: BP 155/77
--- NOTE | 2019-06-19 17:05 | NUR ---
Patient ambulated with staff with standby assistance Patient returned to bed with no complications. Call light within reach.
--- NOTE | 2019-06-19 19:29 | NUR ---
Closing note patient resting in bed with even and unlabored respirations, no distress noted. Fall precautions in place with call light within reach.
--- NOTE | 2019-06-19 19:30 | NUR ---
Care endorsed to PING Kay.
[2019-06-19 22:00] VITALS: BP 110/74
[2019-06-20 05:00] VITALS: BP 110/74
[2019-06-20] MEDS: InsuLIN REG 1unit/0.01ml Soln (100units/ml) SC SCH ×3 (06:11→17:38)
[2019-06-20] MEDS: ACCU-CHEK COMFORT CURVE STRIP VI SCH ×3 (06:11→17:37)
[2019-06-20] MEDS: LEVOTHYROXINE SODIUM 25 MCG TAB PO SCH (06:11)
--- NOTE | 2019-06-20 07:30 | NUR ---
Opening Shift Note Assumed care of patient, awake and alert. No S/S of distress/SOB or pain. Bed is in lowest position with 2x side rails up for safety. Call light is within reach. Instructed on POC and to call for assist PRN, will continue to monitor for changes Q1hr and PRN.
[2019-06-20 08:00] VITALS: BP 132/78
[2019-06-20] MEDS: GABAPENTIN 300 MG CAP PO SCH (08:49)
[2019-06-20] MEDS: DOCUSATE SOD 100 MG CAP PO SCH (08:49)
[2019-06-20] MEDS: ATORVASTATIN 20 MG TAB PO SCH (08:49)
[2019-06-20] MEDS: FERROUS SULFATE 325 MG TAB PO SCH (08:49)
[2019-06-20] MEDS: LISINOPRIL 20 MG TAB PO SCH (08:50)
[2019-06-20] MEDS: POTASSIUM CHL 20 Meq TABLET PO SCH (08:50)
[2019-06-20] MEDS: APIXABAN 2.5 MG TAB PO SCH (08:50)
[2019-06-20] MEDS: METOPROLOL TARTRATE 25 MG TAB PO SCH (08:51)
[2019-06-20 09:00] VITALS: BP 132/78
[2019-06-20] MEDS ORDERED: APIX2.5T PO (12:09)
[2019-06-20 14:00] VITALS: BP 123/81
--- NOTE | 2019-06-20 15:24 | NUR ---
Nutrition Follow-up Notes Wt.: 63.8 kg as of yesterday Pt's with PT at bedside for ambulation when rounded this morning. Pt's no signs of distress noted earlier, currently on Consistent Carb diet with adequate PO intake aeb 85% ave. consumed meals (x6) in last 2.5 days. Est. Needs: 1500 kcal to 1800 kcal (25-30 kcal/kgBW), 60 gms to 72 gms pro (1.0-1.2 gms/kgBW). Will continue to monitor pertinent labs and reassess nutrient need prn Labs: POC Gluc 153 H; 06/19/19 Gluc 158 H, Ca 8.4 L, Cr 1.17 H ; Tpro 6.1 L, Alb 2.0 L Skin: Marco scale 15, mod risk, right forearm skin tear per slot operations manager. Pls refer to latest air export operations agent's notes for details. GI: Pt had 1 BM this morning per slot operations manager. PES: Altered nutrition related lab values r/t current/chronic medical condition aeb hyperglycemia, hypocalcemia, elev. Cr and severe hypoalbuminemia Will continue to monitor PO intake, skin status, pertinent labs and weight trend. F/u in 3 to 5 days. Rec.: 1.) Continue close supervision during meals. 2.) Pls enter order for daily MVI with minerals and Asc acid 500 mgs BID, already e-signed by . 3.) If Albumin continues trending down, consider Prostat 1 pkt BID. 4.) Refer pt to CDE/RD for further nutrition education and weight monitoring upon discharge. 5.) Continue current plan of care.
[2019-06-20 16:21] VITALS: BP 123/78
--- NOTE | 2019-06-20 16:47 | NUR ---
Discharge planning per consult patient had orders for SNF, but do to a conflict in her insurance patient would have had to attend a SNF in [place]. Patient refused [place]. Order was then changed to home health, but after further review patient does not meet criteria for home health as she is ambulating 120ft. order was cancel and patient is cleared to discharge home and to follow up with PCP within 1 week. Nurse Burgos was advised of dc plan Addendum: 06/20/19 at 1710 by DOUGLAS CH Amended: Links added.
[2019-06-20 17:00] VITALS: BP 123/75
--- NOTE | 2019-06-20 17:00 | NUR ---
PT'S FAMILY AT BED SIDE TO PICK HER UP.
--- NOTE | 2019-06-20 17:15 | NUR ---
Discharge instructions given as ordered. Encourage to follow up with PMD as instructed. All questions and concerns addressed. Patient verbalized understanding. Medication reconciliation form completed and copy given to patient. Telemetry unit returned to ICU. Patient taken to vehicle via wheelchair with all personal belongings, accompanied by staff and family member. No distress noted at time of departure.
--- NOTE | 2019-06-20 17:15 | NUR ---
PT REFUSED TO HAVE FLU VACCINE AND PNEUMOCOCCAL VACCINE AT THIS VISIT, PT WILL GET VACCINES AT PCP'S OFFICE.
== END 2019-06-20 17:15 | disposition home or self-care (01) | DRG 871 ==
LOC: EDBD 13:24 → ER 13:28 → TELE 13:29 → TELE-WESTW 21:35
PROVIDERS: ADMIT Nurse Practitioner Acute Care; ATTEND Internal Medicine
DX: A41.9 Sepsis, unspecified organism (principal); E43 Unspecified severe protein-calorie malnutrition; N17.0 Acute kidney failure with tubular necrosis; N30.00 Acute cystitis without hematuria; D68.69 Other thrombophilia; N18.3 Chronic kidney disease, stage 3 (moderate); D50.9 Iron deficiency anemia, unspecified; E03.9 Hypothyroidism, unspecified; I13.10 Hypertensive heart and chronic kidney disease without heart failure, with stage 1 through stage 4 chronic kidney disease, or unspecified chronic kidney disease; E11.22 Type 2 diabetes mellitus with diabetic chronic kidney disease; Z68.24 Body mass index [BMI] 24.0-24.9, adult; E78.5 Hyperlipidemia, unspecified; Z28.21 Immunization not carried out because of patient refusal; S40.811A Abrasion of right upper arm, initial encounter; J44.9 Chronic obstructive pulmonary disease, unspecified; E87.5 Hyperkalemia; I12.9 Hypertensive chronic kidney disease with stage 1 through stage 4 chronic kidney disease, or unspecified chronic kidney disease; I25.10 Atherosclerotic heart disease of native coronary artery without angina pectoris; X58.XXXA Exposure to other specified factors, initial encounter; I48.91 Unspecified atrial fibrillation; E87.6 Hypokalemia; F01.50 Vascular dementia, unspecified severity, without behavioral disturbance, psychotic disturbance, mood disturbance, and anxiety; F10.10 Alcohol abuse, uncomplicated; R55 Syncope and collapse; Z79.01 Long term (current) use of anticoagulants; Z79.84 Long term (current) use of oral hypoglycemic drugs; Z82.3 Family history of stroke; Z90.710 Acquired absence of both cervix and uterus; Z79.899 Other long term (current) drug therapy; Z72.0 Tobacco use; Z83.3 Family history of diabetes mellitus; Z90.49 Acquired absence of other specified parts of digestive tract; Y93.89 Activity, other specified; Y92.89 Other specified places as the place of occurrence of the external cause; Y99.8 Other external cause status; Z86.73 Personal history of transient ischemic attack (TIA), and cerebral infarction without residual deficits
CPT/HCPCS: 36415; 70450; 71045; 80048; 80053; 80061; 81001; 82270; 82962; 83036; 83540; 83550; 83735; 84100; 84443; 84484; 85025; 85045; 87081; 87086; 90715; 93005; 93306; 96361; 96365; 96372; 97116; 97530; G0378; J0696; J1815